=== PATIENT | male | born 1970 | race Caucasian/White ===

== ENCOUNTER → 2022-06-21 | Outpatient (CLI) | payer BC ==
--- NOTE | 2022-06-22 11:15 | MR ---
"EXAMINATION TYPE: MR brain/cspine wo/w DATE OF EXAM: 06/21/2022 COMPARISON: None. HISTORY: Abnormal reflex left > right, left arm numbness TECHNIQUE: Multiplanar, multisequence images of the brain and brainstem and cervical spine are all performed wit hout and with IV contrast, utilizing 6.5 mL intravenous Gadavist . FINDINGS: Brain: Diffusion weighted images demonstrate oval 7 x 4 mm focus of increased signal on diffusion weighted i mages with diminished signal on ADC mapping involving the posterior right frontal lobe at level of co rita radiata system with evolving acute infarct. There is T2 hyperintensity at this level. Mild ventricular and sulcal prominence. Scattered foci of T2 hyperintensity is seen throughout the wh ite matter bilaterally. There are areas of subacute infarct with subcortical enhancement in the right frontal lobe axial image 21 for reference. There is area of old infarct high right frontal parietal junction in posterior frontal lobe axial images 22 through 25. T2 Star weighted images show no suspic ious intraparenchymal blood products. Midline structures demonstrate normal morphology. The craniocervical junction appears within normal limits The dural venous sinuses appear patent. Some dependent fluid in the left maxillary sinus. Haile elate for acute maxillary sinusitis. IMPRESSION: 1. Acute 7 mm lacunar infarct posterior right frontal lobe at level of gipson radiata abutting the ri ght lateral ventricle. 2. Areas of subacute on chronic infarct posterior right frontal and parietal lobe junction along the central sulcus. 3. Mild diffuse age-related cerebral atrophy and mild to moderate chronic small vessel ischemic lopez e. 4. Possible left-sided acute maxillary sinusitis, correlate clinically. C-SPINE: FINDINGS: Sagittal images of the cervical spine show the craniocervical junction to appear within nor mal limits. The cervical and upper thoracic spinal cord is normal in course, caliber, and signal. V ertebral alignment is anatomic. The vertebral body and intravertebral disk heights are normal. The bone marrow signal intensity is within normal limits. No abnormal postcontrast enhancement is seen. Axial images show C2-C3 through C4-C5 levels to appear within normal limits. Axial images at C5-C6 levels from broad-based posterior disc protrusion mildly facing anterior thecal sac and causing mild to moderate bilateral neural foraminal narrowing. Axial images at C6-C7 and C7-T1 levels appear within normal limits. IMPRESSION: Focal degenerative change C5-C6 level as detailed above. A Yellow level critical message alert has been initiated for Tonio Aiken DO via the [employer] 36 0 | Critical Results System on 06/22/2022 11:13 AM. This message alert has been sent to Tonio wynn DO via the preferences provided by the clinician for the receipt of Radiology Critical Findings. Ryan essage ID [id number]."
== END | disposition home or self-care (01) ==
LOC: RADMRIMAIN 17:59
PROVIDERS: ATTEND Psychiatry & Neurology Neurology
DX: I63.81 Other cerebral infarction due to occlusion or stenosis of small artery (principal); G31.1 Senile degeneration of brain, not elsewhere classified; I67.82 Cerebral ischemia; M47.812 Spondylosis without myelopathy or radiculopathy, cervical region
CPT/HCPCS: 70553; 72156; A9585

== ENCOUNTER 2022-06-26 12:39 | Inpatient (IN) | payer BC ==
[2022-06-26] MEDS ORDERED: SODIUM CHLORIDE 0.9% 500 ML 500 ML IV STA (13:33)
--- NOTE | 2022-06-26 13:41 | ED ---
General Adult HPI - General Chief complaint: Neuro Symptoms/Deficit Stated complaint: neuro deficit Time Seen by Provider: 06/26/22 12:42 Source: patient, RN notes reviewed, old records reviewed Mode of arrival: ambulatory Limitations: no limitations - History of Present Illness Initial comments: This a 52-year-old male who presents emergency Department with a past medical history significant for stroke. Patient states his first stroke was in January. Patient states that he has had new weakness on the left side as well as coordination problems of the left side for the last 2 months per patient states it has not changed over the 2 months been consistent. Patient states he saw Dr. Aiken and he didn't MRI as an outpatient and showed an acute stroke on the MRI plus the old strokes that he had in the past per patient states he was told to come the emergency department because he wanted further workup and get admitted. Patient states he is a smoker. Patient denies any recent fever chills or cough per patient denies any headache patient denies any lightheadedness. Patient denies any chest pain difficulty breathing. Patient denies any abdominal pain. Patient denies any nausea vomiting diarrhea. - Related Data Home Medications Medication Instructions Recorded Confirmed ALPRAZolam [Xanax] 0.25 mg PO DAILY PRN 01/18/16 01/18/16 Ascorbic Acid [Vitamin C] 500 mg PO DAILY 01/18/16 01/18/16 Aspirin EC [Ecotrin Low Dose] 81 mg PO HS 01/18/16 01/18/16 HYDROcodone/APAP 10-325MG [Axtell 1 tab PO Q8H PRN 01/18/16 01/18/16 10-325] Mometasone/Formoterol [Dulera 200 2 puff INHALATION RT-BID 01/18/16 01/18/16 Mcg-5 Mcg Inhaler] Multivitamins, Thera [Multivitamin 1 tab PO DAILY 01/18/16 01/18/16 (formulary)] Venlafaxine HCl ER [Effexor XR] 37.5 mg PO DAILY 01/18/16 01/18/16 Zolpidem [Ambien] 10 mg PO HS 01/18/16 01/18/16 Previous Rx's Medication Instructions Recorded atenoloL 100 mg PO DAILY #0 01/19/16 lisinopriL [Zestril] 10 mg PO BID #60 tab 01/19/16 rOPINIRole HCL [Requip] 0.25 mg PO HS #30 tab 01/19/16 Allergies Allergy/AdvReac Type Severity Reaction Status Date / Time peanut Allergy Anaphylaxis Verified 01/18/16 18:46 Penicillins AdvReac Nausea & Verified 06/26/22 12:50 Vomiting Review of Systems ROS Statement: Those systems with pertinent positive or pertinent negative responses have been documented in the HPI. ROS Other: All systems not noted in ROS Statement are negative. Past Medical History Past Medical History: Asthma, Coronary Artery Disease (CAD), CVA/TIA, Hyper tension History of Any Multi-Drug Resistant Organisms: None Reported Past Surgical History: Orthopedic Surgery Additional Past Surgical History / Comment(s): mitral valve repair, left rotator cuff surgery 2004 Past Anesthesia/Blood Transfusion Reactions: No Reported Reaction Past Psychological History: No Psychological Hx Reported Smoking Status: Current every day smoker Past Alcohol Use History: None Reported Past Drug Use History: Marijuana - Past Family History Father Family Medical History: Cancer, Coronary Artery Disease (CAD), Hypertension Mother Family Medical History: Cancer General Exam - General Exam Comments Initial Comments: GENERAL: Patient is well-developed and well-nourished. Patient is nontoxic and well- hydrated and is in no acute distress. ENT: Neck is soft and supple. No significant lymphadenopathy is noted. Oropharynx is clear. Moist mucous membranes. Neck has full range of motion without eliciting any pain. EYES: The sclera were anicteric and conjunctiva were pink and moist. Extraocular movements were intact and pupils were equal round and reactive to light. Eyelids were unremarkable. PULMONARY: Unlabored respirations. Good breath sounds bilaterally. No audible rales rhonchi or wheezing was noted. CARDIOVASCULAR: There is a regular rate and rhythm without any murmurs gallops or rubs. ABDOMEN: Soft and nontender with normal bowel sounds. SKIN: Skin is clear with no lesions or rashes and otherwise unremarkable. NEUROLOGIC: Patient is alert and oriented x3. Cranial nerves II through XII are grossly intact. Patient has weakness in the left flat drier as well as and dorsi and plantar flexion. Patient also has poor cerebellar function. Finger to nose was significantly worse on the left than the right. MUSCULOSKELETAL: Normal extremities with adequate strength and full range of motion. LYMPHATICS: No significant lymphadenopathy is noted PSYCHIATRIC: Normal psychiatric evaluation. Limitations: no limitations Course Vital Signs 06/26/22 12:48 Temperature 97.5 F L Pulse Rate 69 Respiratory 18 Rate Blood Pressure 148/92 O2 Sat by Pulse 100 Oximetry Medical Decision Making - Medical Decision Making I interpret EKG. EKG shows sinus bradycardia 52 bpm [place] interval is on a 53 QRS is 93 QT interval 396 QTC is 376. Patient's EKG shows no ST segment elevation or depression. I reviewed the MRI results and that showed acute infarct. I interpreted the chest x-ray. Shows no acute abnormality. CT angiogram of the head and neck shows 90-99% stenosis of the right internal carotid. I will consult vascular. I spoke with Dr. barnett agreed to admit the patient admitted the patient wrote admitting orders I consult the neurology - Lab Data Result diagrams: 06/26/22 14:15 06/26/22 14:15 Lab Results 06/26/22 06/26/22 06/26/22 Range/Units 14:15 14:15 14:15 WBC 7.5 (3.8-10.6) k/uL RBC 4.93 (4.30-5.90) m/uL Hgb 14.3 (13.0-17.5) gm/dL Hct 44.1 (39.0-53.0) % MCV 89.5 (80.0-100.0) fL MCH 29.0 (25.0-35.0) pg MCHC 32.4 (31.0-37.0) g/dL RDW 13.5 (11.5-15.5) % Plt Count 152 (150-450) k/uL MPV 10.2 Neutrophils % 48 % Lymphocytes % 38 % Monocytes % 5 % Eosinophils % 6 % Basophils % 1 % Neutrophils # 3.6 (1.3-7.7) k/uL Lymphocytes # 2.9 (1.0-4.8) k/uL Monocytes # 0.4 (0-1.0) k/uL Eosinophils # 0.4 (0-0.7) k/uL Basophils # 0.1 (0-0.2) k/uL PT 10.7 (9.0-12.0) sec INR 1.0 (<1.2) APTT 23.8 (22.0-30.0) sec Sodium 137 (137-145) mmol/L Potassium 4.9 (3.5-5.1) mmol/L Chloride 109 H (98-107) mmol/L Carbon Dioxide 24 (22-30) mmol/L Anion Gap 4 mmol/L BUN 15 (9-20) mg/dL Creatinine 0.90 (0.66-1.25) mg/dL Est GFR (CKD-EPI)AfAm >90 (>60 ml/min/1.73 sqM) Est GFR (CKD-EPI)NonAf >90 (>60 ml/min/1.73 sqM) Glucose 94 (74-99) mg/dL Calcium 9.1 (8.4-10.2) mg/dL Total Bilirubin 0.2 (0.2-1.3) mg/dL AST 36 (17-59) U/L ALT 26 (4-49) U/L Alkaline Phosphatase 58 (38-126) U/L Troponin I (0.000-0.034) ng/mL Total Protein 6.9 (6.3-8.2) g/dL Albumin 4.4 (3.5-5.0) g/dL 06/26/22 Range/Units 14:15 WBC (3.8-10.6) k/uL RBC (4.30-5.90) m/uL Hgb (13.0-17.5) gm/dL Hct (39.0-53.0) % MCV (80.0-100.0) fL MCH (25.0-35.0) pg MCHC (31.0-37.0) g/dL RDW (11.5-15.5) % Plt Count (150-450) k/uL MPV Neutrophils % % Lymphocytes % % Monocytes % % Eosinophils % % Basophils % % Neutrophils # (1.3-7.7) k/uL Lymphocytes # (1.0-4.8) k/uL Monocytes # (0-1.0) k/uL Eosinophils # (0-0.7) k/uL Basophils # (0-0.2) k/uL PT (9.0-12.0) sec INR (<1.2) APTT (22.0-30.0) sec Sodium (137-145) mmol/L Potassium (3.5-5.1) mmol/L Chloride (98-107) mmol/L Carbon Dioxide (22-30) mmol/L Anion Gap mmol/L BUN (9-20) mg/dL Creatinine (0.66-1.25) mg/dL Est GFR (CKD-EPI)AfAm (>60 ml/min/1.73 sqM) Est GFR (CKD-EPI)NonAf (>60 ml/min/1.73 sqM) Glucose (74-99) mg/dL Calcium (8.4-10.2) mg/dL Total Bilirubin (0.2-1.3) mg/dL AST (17-59) U/L ALT (4-49) U/L Alkaline Phosphatase (38-126) U/L Troponin I <0.012 (0.000-0.034) ng/mL Total Protein (6.3-8.2) g/dL Albumin (3.5-5.0) g/dL Disposition Clinical Impression: Cerebrovascular accident (CVA) Disposition: ADMITTED IP TO THIS [facility] Time of Disposition: 14:39
[2022-06-26 14:25] LABS: Basophils # (A) 0.1 k/uL (0-0.2); Basophils % (A) 1 %; Eosinophils # (A) 0.4 k/uL (0-0.7); Eosinophils % (A) 6 %; HCT 44.1 % (39.0-53.0); HGB 14.3 gm/dL (13.0-17.5); Lymphocytes # (A) 2.9 k/uL (1.0-4.8); Lymphocytes % (A) 38 %; MCHC 32.4 g/dL (31.0-37.0); MCV 89.5 fL (80.0-100.0); Mean Platelet Volume 10.2; Monocytes # (A) 0.4 k/uL (0-1.0); Monocytes % (A) 5 %; Neutrophils # (A) 3.6 k/uL (1.3-7.7); Neutrophils % (A) 48 %; Platelet Count 152 k/uL (150-450); RBC 4.93 m/uL (4.30-5.90); RDW 13.5 % (11.5-15.5); WBC 7.5 k/uL (3.8-10.6)
[2022-06-26 14:32] LABS: ALT 26 U/L (4-49); AST 36 U/L (17-59); African American GFR (CKD) >90 (>60 ml/min/1.73 sqM); Albumin 4.4 g/dL (3.5-5.0); Alkaline Phosphatase 58 U/L (38-126); Anion Gap 4 mmol/L; Blood Urea Nitrogen 15 mg/dL (9-20); Calcium 9.1 mg/dL (8.4-10.2); Carbon Dioxide 24 mmol/L (22-30); Chloride 109 mmol/L (98-107); Glucose 94 mg/dL (74-99); Non-African American GFR(CKD) >90 (>60 ml/min/1.73 sqM); Potassium 4.9 mmol/L (3.5-5.1); Sodium 137 mmol/L (137-145); Total Bilirubin 0.2 mg/dL (0.2-1.3); Total Protein 6.9 g/dL (6.3-8.2)
[2022-06-26 14:33] LABS: Partial Thromboplastin Time 23.8 sec (22.0-30.0); Prothrombin Time 10.7 sec (9.0-12.0)
[2022-06-26] MEDS ORDERED: ASPIRIN 325 MG TAB PO STA (14:39)
--- NOTE | 2022-06-26 14:54 | XR ---
EXAMINATION TYPE: XR chest 2V DATE OF EXAM: 06/26/2022 2:42 PM COMPARISON: Chest radiographs from 01/18/2016 TECHNIQUE: XR chest 2V Frontal and lateral views of the chest. CLINICAL INDICATION:Male, 52 years old with history of altered mental status; FINDINGS: Lungs/Pleura: There is no evidence of pleural effusion, focal consolidation, or pneumothorax. Pulmonary vascularity: Unremarkable. Heart/mediastinum: Cardiomediastinal silhouette is unremarkable. Musculoskeletal: No acute osseous pathology. IMPRESSION: No acute cardiopulmonary disease/process.
--- NOTE | 2022-06-26 15:17 | CT ---
EXAMINATION TYPE: CT angio head neck DATE OF EXAM: 06/26/2022 HISTORY: cva COMPARISON: MRI brain [address] DLP: 404.8 mGycm. Automated Exposure Control for Dose Reduction was Utilized. TECHNIQUE: CTA scan of the head and neck is performed with IV Contrast, patient injected with 65cc m L of Isovue 370, axial images are obtained, coronal and sagittal reformatted images are reviewed. 3D reconstructed images are created on an independent workstation and reviewed. FINDINGS: Carotid/Vascular Structures: Normal three-vessel origin without significant stenosis from the aortic arch. Right common carotid artery shows normal origin from the right brachiocephalic artery. No signi ficant plaque or stenosis in the right common carotid artery. There is more severe mixed plaque in ri ght carotid bulb extending into proximal internal carotid artery causing near complete occlusion with poor visualized flow axial image 147 series 402. Finding correlates with image 154 series 410. Left common carotid artery shows no significant plaque or stenosis. Moderate mixed plaque left carotid bul b extends into proximal internal carotid artery without significant stenosis. Patent external carotid arteries bilaterally without significant stenosis. Codominant vertebral arteries patent to the basilar junction. Hypoplastic right posterior indicating artery. Patent left posterior communicating artery. No significant focal stenosis or aneurysm in the posterior circulation. Images of the anterior circulation show patent anterior communicating artery. No significant focal stenosis or aneurysm is seen. Other: Emphysematous change of the visualized lungs greatest in the periphery is noted. There is a sp iculated 10 x 8 mm posterior right upper lung nodule axial image 32 series 401. IMPRESSION: Significant focal stenosis origin of the proximal right internal carotid artery estimated 90-99% is confirmed. No significant stenosis or aneurysm at the level of the [place] of [place]. NASCET criteria was used in interpretation of this exam? ER physician called with findings at time of dictation.
--- NOTE | 2022-06-26 15:24 | P.HPIM ---
History of Present Illness This is a pleasant 52 years old male who presents with stroke-like symptoms. He has multiple medical problems as below Patient follow-up with her neurologist Dr. albright. We did MRI of the brain for him recently shown acute stroke but patient has no new symptoms. 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 Patient states that since January is been having numbness in his left face upper extremity and lower extremity, also have some weakness and difficulty in dropping things and his left fist associated with left blurry vision, he says that he went to [facility] and he had CT of the brain and he was told he did not have stroke. He follow-up with his neurologist Dr. Albright, so home on 05/30 ordered MRI of the brain. Dr. Albright call him and he has acute stroke per MRI report and referred him to come to emergency room. Patient denies worsening weakness or numbness but he has ongoing symptoms for the last 5 months. No significant headache or dizziness. No new double vision or slurred speech. He has no chest pain or dyspnea or abdominal pain. No nausea vomiting or diarrhea. No urinary complaints. He smokes half pack per day and was counseled to quit he does not want nicotine patch but he agrees to quit. No alcohol and he uses THC. He states he uses aspirin 81 mg at home. His PCP is Dr. Del Cid but he wants to switch his PCP Vitals stable, patient is afebrile. Has unremarkable. CBC INR, BMP and liver enzymes and troponin. Chest x-ray: No acute process. EKG showing sinus bradycardia at [address]-T changes. QTC 376. And emergency room he got aspirin Review of Systems Review of systems CONSTITUTIONAL: No fever, no malaise, no fatigue. HEENT: No recent visual problems or hearing problems. Denied any sore throat. CARDIOVASCULAR: No orthopnea, PND, no palpitations, no syncope. PULMONARY: No shortness of breath, no cough, no hemoptysis. GASTROINTESTINAL: No diarrhea, no nausea, no vomiting, no abdominal pain. Normoactive bowel sounds. NEUROLOGICAL: No headaches, no dizziness HEMATOLOGICAL: Denies any bleeding or petechiae. GENITOURINARY: Denies any burning micturition, frequency, or urgency. MUSCULOSKELETAL/RHEUMATOLOGICAL: Denies any joint pain, swelling, or any muscle pain. ENDOCRINE: Denies any polyuria or polydipsia. Past Medical History Past Medical History: Asthma, Coronary Artery Disease (CAD), CVA/TIA, Hypertension History of Any Multi-Drug Resistant Organisms: None Reported Past Surgical History: Orthopedic Surgery Additional Past Surgical History / Comment(s): mitral valve repair, left rotator cuff surgery 2004 Past Anesthesia/Blood Transfusion Reactions: No Reported Reaction Past Psychological History: No Psychological Hx Reported Smoking Status: Current every day smoker Past Alcohol Use History: None Reported Past Drug Use History: Marijuana - Past Family History Father Family Medical History: Cancer, Coronary Artery Disease (CAD), Hypertension Mother Family Medical History: Cancer Medications and Allergies Home Medications Medication Instructions Recorded Confirmed Type ALPRAZolam [Xanax] 0.25 mg PO DAILY PRN 01/18/16 01/18/16 History Ascorbic Acid [Vitamin C] 500 mg PO DAILY 01/18/16 01/18/16 History Aspirin EC [Ecotrin Low Dose] 81 mg PO HS 01/18/16 01/18/16 History HYDROcodone/APAP 10-325MG [Schaller 1 tab PO Q8H PRN 01/18/16 01/18/16 History 10-325] Mometasone/Formoterol [Dulera 200 2 puff INHALATION RT-BID 01/18/16 01/18/16 History Mcg-5 Mcg Inhaler] Multivitamins, Thera [Multivitamin 1 tab PO DAILY 01/18/16 01/18/16 History (formulary)] Venlafaxine HCl ER [Effexor XR] 37.5 mg PO DAILY 01/18/16 01/18/16 History Zolpidem [Ambien] 10 mg PO HS 01/18/16 01/18/16 History atenoloL 100 mg PO DAILY #0 01/19/16 01/18/16 Rx lisinopriL [Zestril] 10 mg PO BID #60 tab 01/19/16 Rx rOPINIRole HCL [Requip] 0.25 mg PO HS #30 tab 01/19/16 Rx Allergies Allergy/AdvReac Type Severity Reaction Status Date / Time peanut Allergy Anaphylaxis Verified 01/18/16 18:46 Penicillins AdvReac Nausea & Verified 06/26/22 12:50 Vomiting Physical Exam Vitals: Vital Signs Temp Pulse Resp BP Pulse Ox 06/26/22 12:48 97.5 F L 69 18 148/92 100 Intake and Output 06/25/22 06/26/22 06/26/22 22:59 06:59 14:59 Other: Weight 63.503 kg GENERAL: The patient is alert and oriented x3, not in any acute distress. Well developed, well nourished. HEENT: Pupils are round and equally reacting to light. EOMI. No scleral icterus. No conjunctival pallor. Normocephalic, atraumatic. No pharyngeal erythema. No thyromegaly. CARDIOVASCULAR: S1 and S2 present. No murmurs, rubs, or gallops. PULMONARY: Chest is clear to auscultation, no wheezing or crackles. ABDOMEN: Soft, nontender, nondistended, normoactive bowel sounds. No palpable organomegaly. MUSCULOSKELETAL: No joint swelling or deformity. EXTREMITIES: No cyanosis, clubbing, or pedal edema. -NEUROLOGICAL: Cranial nerves are grossly intact. 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 Meningeal signs are absent Gross neurological examination did not reveal any focal deficits. SKIN: No rashes. no petechiae. Results CBC & Chem 7: 06/26/22 14:15 06/26/22 14:15 Labs: Abnormal Lab Results - Last 24 Hours (Table) 06/26/22 Range/Units 14:15 Chloride 109 H (98-107) mmol/L Assessment and Plan Assessment: Acute stroke, With ongoing numbness in the left face and left side with mild degree of weakness especially in the left upper extremity Nicotine dependence History of previous stroke/TIA since last shown Hypertension History of asthma, not an active issue History of coronary artery disease Status post mitral valve repair Nicotine dependence Plan: Continue with aspirin 325 mg daily check carotid duplex Neurology consult Labs and medication were reviewed.. Continue same treatment. Continue with symptomatic treatment. Resume home medication. Monitor labs and vitals. DVT and GI prophylaxis. Further recommendations as per clinical course of the patient DVT prophylaxis: Subcutaneous heparin GI Prophylaxis: Pepcid PT/OT: Pending Speech therapy Prognosis is guarded
--- NOTE | 2022-06-26 16:55 | US ---
EXAMINATION TYPE: US carotid duplex BILAT DATE OF EXAM: 06/26/2022 COMPARISON: NONE CLINICAL HISTORY: stroke. Dizziness, left sided numbness, CVA TECHNIQUE: Carotid duplex ultrasound examination. Indirect Doppler criteria was utilized. 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 Increased velocities right ICA and ECA. Mild plaque left bifurcation. mildly increased velocites left ECA IMPRESSION: 1. Greater than 70% stenosis of the right carotid bifurcation with significantly elevated peak systo lic velocity and ratio. 2. Less than 50% stenosis of the left carotid bifurcation. Criteria for Assigning % of Stenosis / Diameter reduction (Estimation based on the indirect measurements of the internal carotid artery velocities (ICA PSV). 1. Normal (no stenosis)=ICA PSV < 125 cm/s: ratio < 2.0: ICA EDV<40 cm/s. 2. Less than 50% stenosis=ICA PSV < 125 cm/s: ratio < 2.0: ICA EDV<40 cm/s. 3. 50 to 69% stenosis=ICA PSV of 125 to 230 cm/s: ration 2.0 ? 4.0: ICA EDV 40-100 cm/s. 4. Greater than 70% stenosis to near occlusion= ICA PSV > 230 cm/s: ratio > 4.0: ICA EDV > 100 cm/s. 5. Near occlusion= ICA PSV velocities may be low or undetectable: variable ratio and ICA EDV. 6. Total occlusion=unable to detect flow.
[2022-06-26] MEDS: CLOPIDOGREL 75 MG TAB PO SCH (17:53)
[2022-06-26] MEDS ORDERED: ONDANSETRON ODT 4 MG TAB PO PRN (19:25)
[2022-06-26] MEDS ORDERED: NON FORMULARY DRUG (Epinephrine [Primatene Mist] 11.7 GM Each) INHALATION PRN (19:25)
[2022-06-26] MEDS ORDERED: hydrALAZINE HCL 10 MG TAB PO STA (19:31)
[2022-06-26] MEDS: NICOTINE 7MG/24HR PATCH TRANSDERM SCH (19:52)
--- NOTE | 2022-06-26 20:18 | P.CNNES ---
History of Present Illness Consult date: 06/26/22 Requesting physician: Robles Fry Reason for Consult: CVA History of Present Illness: Patient is a 52-year-old right-handed male with history of hypertension, tobacco use came to the hospital today at 12:39 PM, directly referred from his neurologist Dr. Aiken's office for abnormal brain MRI in acute on chronic CVA. Patient states that on 01/30/2022 he woke up in the morning with left facial numbness, left arm numbness and left knee numbness. He went to [facility]. Patient tells me that he was given an injection of Toradol and some anti-inflammatory medication, and was sent home. Patient says that for a month he felt feeling in the left arm, did not want to use the left arm. By mid February he was able to use his left arm, and when using it, felt significant incoordination and would shake by using the left hand or reaching for some object. He saw his family physician, who initiated consultation with a neurologist. Patient states that it took 2 months for him to see Dr. Aiken. An MRI of the brain was initiated, which was performed on 06/21/2022, revealed an acute or chronic stroke in the right hemispheric region as mentioned below. Patient was seen for a follow-up at his neurologist office today and was recommended to go straight to ER. Patient states that since all these months, he never had any visual disturbance, slurred speech or droopiness of the face or any headache. Patient states that his main symptoms involved left upper extremity, but recently his left knee also shakes, and feels incoordinated. Since February, he feels that there is an Magdiel wrap around his left upper arm in the region of biceps and triceps. Also noticed as if there is a Band-Aid over the left index finger. He denies any pain. Vital signs shows blood pressure 148/92, pulse rate 69, temperature 97.5. Blood pressure was normal CBC, PT/PTT, normal CMP. Troponin is negative. EKG shows sinus bradycardia. Chest x-ray showed no acute cardiopulmonary process. CTA of the neck showed significant focal stenosis or region of the proximal right ICA estimated 90-99% is conformed. No significant stenosis or aneurysm at the level of [place]. I personally reviewed CTA of head and neck, agree with the findings. Patient had an outpatient MRI of the brain performed on 06/21/2022, which revealed acute 7 mm lacunar infarct posterior right frontal lobe at the level of coronary radiata abutting the right lateral ventricle. Areas of subacute on chronic infarct posterior right frontal and frontal lobe junction along the central sulcus. Mild diffuse age-related cerebral atrophy and [id number] chronic small vessel ischemic change. Possible left-sided acute maxillary sinusitis, correlate clinically. I personally reviewed MRI, agree with the findings. MRI of the cervical spine revealed focal degenerative changes C5 6 from broad based posterior disc protrusion mildly effacing anterior thecal sac causing mild to moderate bilateral neural foraminal narrowing. Patient takes aspirin 81 mg daily, Xanax 0.5 mg daily when necessary, Effexor 75 mg, Zofran, metoprolol 100 mg twice a day, Suboxone. Patient has been on aspirin 81 mg daily for 25-30 years. Patient has smoked 3 packs per day since age 15, cutback to half pack per day in the last 6-8 months. He also uses angelina vinay at the knees, denies any alcohol use. Review of Systems Constitutional: Denies chills, Denies fever Eyes: denies blurred vision, denies pain Ears, nose, mouth and throat: Denies headache, Denies sore throat Cardiovascular: Denies chest pain, Denies shortness of breath Respiratory: Denies cough Gastrointestinal: Denies abdominal pain, Denies diarrhea, Denies nausea, Denies vomiting Musculoskeletal: Denies myalgias Integumentary: Denies pruritus, Denies rash Neurological: Reports as per HPI Psychiatric: Denies anxiety, Denies depression Endocrine: Denies fatigue, Denies weight change Hematologic/Lymphatic: Denies easy bleeding, Denies easy bruising Allergic/Immunologic: Denies persistent infections Past Medical History Past Medical History: Asthma, Coronary Artery Disease (CAD), CVA/TIA, Hypertension History of Any Multi-Drug Resistant Organisms: None Reported Past Surgical History: Orthopedic Surgery Additional Past Surgical History / Comment(s): mitral valve repair, left rotator cuff surgery 2004 Past Anesthesia/Blood Transfusion Reactions: No Reported Reaction Past Psychological History: No Psychological Hx Reported Smoking Status: Current every day smoker Past Alcohol Use History: None Reported Past Drug Use History: Marijuana - Past Family History Father Family Medical History: Cancer, Coronary Artery Disease (CAD), Hypertension Mother Family Medical History: Cancer Medications and Allergies Home Medications Medication Instructions Recorded Confirmed Type Aspirin EC [Ecotrin Low Dose] 81 mg PO DAILY 01/18/16 06/26/22 History ALPRAZolam [Xanax] 0.5 mg PO DAILY PRN 06/26/22 06/26/22 History Buprenorphine HCl/Naloxone HCl 1 film SL DAILY PRN 06/26/22 06/26/22 History [Buprenorphine-Nalox 8-2Mg Film] EPINEPHrine [Primatene Mist] 1 puff INHALATION RT-BID PRN 06/26/22 06/26/22 History Ibuprofen [Motrin] 800 mg PO Q8H PRN 06/26/22 06/26/22 History Metoprolol Tartrate [Lopressor] 100 mg PO BID 06/26/22 06/26/22 History Ondansetron Odt [Zofran Odt] 4 mg PO TID PRN 06/26/22 06/26/22 History Venlafaxine HCl ER [Effexor Xr] 75 mg PO DAILY 06/26/22 06/26/22 History Allergies Allergy/AdvReac Type Severity Reaction Status Date / Time peanut Allergy Anaphylaxis Verified 06/26/22 15:42 tree nut Allergy Anaphylaxis Verified 06/26/22 15:42 Penicillins AdvReac Nausea & Verified 06/26/22 15:42 Vomiting Physical Examination - Vital Signs Vital Signs: Vital Signs Temp Pulse Resp BP Pulse Ox 06/26/22 12:48 97.5 F L 69 18 148/92 100 Intake and Output 06/26/22 06/26/22 06/26/22 06:59 14:59 22:59 Other: Weight 63.503 kg Patient is a middle aged male, very pleasant, in no acute distress. Patient is alert awake oriented to time place and person. Speech and language functions are normal. Patient can name and repeat very well. No aphasia or dy sarthria. Attention, concentration and fund of knowledge is adequate. On cranial nerve examination, pupils are equal, round and reacting to light, visual blanco are full on confrontation, with no neglect on double simultaneous stimulation. Extraocular muscles are intact with no nystagmus. Face is symmetric, tongue protrudes to the midline. Palatal elevation and sensation normal, hearing and shoulder shrug normal, facial sensation normal. On muscle strength testing, there is left-sided pronation with outward drift. 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 Deep tendon reflexes are (right/left) biceps 2/3+, brachioradialis 2/3+, knees 3/3, ankles 2/3 and plantar is downgoing on the right, up on the left. Sensory to touch is equal with no neglect on double simultaneous stimulation. Cerebellar function showed significant ataxia for [id number] testing only in the left side. No ataxia for zjsf-ti-bzac testing on either side. Tone is significantly increased in the left arm and bulk of muscles normal. Gait deferred.. On general examination, there is no carotid bruit or murmur, S1-S2 audible. Chest is clear on consultation. Abdomen is soft nontender. No organomegaly, bowel sounds present. Peripheral pulses are present. No edema. Results - Laboratory Findings CBC and BMP: 06/26/22 14:15 06/26/22 14:15 Abnormal Lab Findings: Abnormal Labs 06/26/22 14:15 Chloride 109 H Assessment and Plan Assessment: * Acute, subacute and chronic areas of ischemic infarction involving the right MCA distribution, likely due to symptomatic right ICA stenosis. * Right ICA stenosis, 90-99% per CTA. * Spasticity left upper extremity due to above. * Hypertension * Tobacco use Plan: * MRI of the brain without contrast from 06/21/2022 reviewed. No indication to repeat. * 2-D echo with bubble study to rule out PFO * CTA head and neck showed: Severe stenosis, 90-99% right proximal ICA * Carotid Doppler revealed greater than 70% stenosis of the right ICA with significant elevated peak systolic velocity. Less than 50% stenosis of the left ICA. * Await vascular surgery evaluation. * Fasting a.m. lipid panel * Hemoglobin A1c * Permissive hypertension for next 24-48 hours * Patient was taking aspirin 81 mg daily at home. We will start DAP and add Plavix 75 mg as well. * Close neuro checks as per protocol. * Telemetry monitoring rule out any arrhythmia * DVT prophylaxis: Heparin 5000 units subcu every 8 hours * Recommend complete tobacco cessation. * Dr. Dave Salazar will continue to follow from morning . Thank you for the consult.
[2022-06-26] MEDS: HEPARIN SODIUM,PORCINE/PF 5,000 UNIT/0.5 ML SYRINGE SQ SCH (21:15)
[2022-06-27] MEDS: ASPIRIN 81 MG PO SCH (08:10)
[2022-06-27] MEDS: NICOTINE 7MG/24HR PATCH TRANSDERM SCH (08:10)
[2022-06-27] MEDS: HEPARIN SODIUM,PORCINE/PF 5,000 UNIT/0.5 ML SYRINGE SQ SCH ×2 (08:10→19:35)
[2022-06-27] MEDS: CLOPIDOGREL 75 MG TAB PO SCH (08:10)
[2022-06-27] MEDS: VENLAFAXINE HCL ER 75 MG CAP PO SCH (08:11)
[2022-06-27] MEDS ORDERED: ASPIRIN 325 MG TAB PO SCH (09:00)
[2022-06-27 10:52] LABS: Chol/HDL Ratio 6.69 Ratio
--- NOTE | 2022-06-27 12:02 | P.GSCN ---
History of Present Illness Consult date: 06/27/22 Reason for Consult: Carotid stenosis Requesting physician: Robles Fry History of present illness: This is a pleasant 52-year-old male who presented to the emergency department directed by his neurologist. Apparently patient was seen at [facility] back in January of this year with complaints of left facial weakness, numbness and left-sided weakness. He states at that time he didn't really do a stroke workup and he was sent home. He followed up with his primary care physician who sent him to neurologist, he recently just saw Dr. Aiken for the first time. He ordered a MRI of the brain on 06/21/2022 that revealed Patient had an outpatient MRI of the brain performed on 06/21/2022, which revealed acute 7 mm lacunar infarct posterior right frontal lobe at the level of coronary radiata abutting the right lateral ventricle. Areas of subacute on chronic infarct posterior right frontal and frontal lobe junction along the central sulcus. Mild diffuse age-related cerebral atrophy and [id number] chronic small vessel ischemic change. Possible left-sided acute maxillary sinusitis, correlate clinically. MRI of the cervical spine revealed focal degenerative changes C5 6 from broad based posterior disc protrusion mildly effacing anterior thecal sac causing mild to moderate bilateral neural foraminal narrowing. Equivocal yellow level was called and patient was told to come to the emergency department for further evaluation. Past medical history includes a daily smoker, coronary artery disease with previous mitral valve repair, hypertension, and previous CVA/TIA Patient states he's had some residual left-sided weakness since January. He denies any other focal deficits. He denies any chest pain, shortness of breath, abdominal pain, nausea or vomiting. He had a CT angiogram of the head and neck on admission which reported significant focal stenosis at the origin of the pro ximal right internal carotid artery estimated 90 mid 99%. No hematoma dynamically significant stenosis in the left ICA. Patient also had a carotid duplex that reported greater than 70% stenosis of the right ICA, less than 50% stenosis of the left ICA. Review of Systems A 14 point review systems was completed all pertinent positives and negatives as stated in the HPI. Past Medical History Past Medical History: Asthma, Coronary Artery Disease (CAD), CVA/TIA, Hypertension History of Any Multi-Drug Resistant Organisms: None Reported Past Surgical History: Orthopedic Surgery Additional Past Surgical History / Comment(s): mitral valve repair, left rotator cuff surgery 2005 Past Anesthesia/Blood Transfusion Reactions: No Reported Reaction Past Psychological History: No Psychological Hx Reported Smoking Status: Current every day smoker Past Alcohol Use History: None Reported Past Drug Use History: Marijuana - Past Family History Father Family Medical History: Cancer, Coronary Artery Disease (CAD), Hypertension Mother Family Medical History: Cancer Medications and Allergies Home Medications Medication Instructions Recorded Confirmed Type Aspirin EC [Ecotrin Low Dose] 81 mg PO DAILY 01/18/16 06/26/22 History ALPRAZolam [Xanax] 0.5 mg PO DAILY PRN 06/26/22 06/26/22 History Buprenorphine HCl/Naloxone HCl 1 film SL DAILY PRN 06/26/22 06/26/22 History [Buprenorphine-Nalox 8-2Mg Film] EPINEPHrine [Primatene Mist] 1 puff INHALATION RT-BID PRN 06/26/22 06/26/22 History Ibuprofen [Motrin] 800 mg PO Q8H PRN 06/26/22 06/26/22 History Metoprolol Tartrate [Lopressor] 100 mg PO BID 06/26/22 06/26/22 History Ondansetron Odt [Zofran Odt] 4 mg PO TID PRN 06/26/22 06/26/22 History Venlafaxine HCl ER [Effexor Xr] 75 mg PO DAILY 06/26/22 06/26/22 History Allergies Allergy/AdvReac Type Severity Reaction Status Date / Time peanut Allergy Anaphylaxis Verified 06/26/22 15:42 tree nut Allergy Anaphylaxis Verified 06/26/22 15:42 Penicillins AdvReac Nausea & Verified 06/26/22 15:42 Vomiting Surgical - Exam Vital Signs Temp Pulse Resp BP Pulse Ox 97.5 F L 69 18 148/92 100 06/26/22 12:48 06/26/22 12:48 06/26/22 12:48 06/26/22 12:48 06/26/22 12:48 General appearance: The patient is alert, oriented, appears in no acute distre ss. HET: Head is normocephalic and atraumatic. Pupils are equal and reactive. Neck: Supple without lymphadenopathy. Trachea midline. Right carotid bruit. Heart: Regular. Lungs: Equal expansion, normal respiratory effort. Abdomen: Soft, nontender, nondistended. Extremities: Normal skin color and turgor. No cyanosis, rash, ulceration, clubbing, or edema. Radial and pedal pulses are 2/4 bilaterally. Neurological: Patient is alert and oriented 3, he is able to answer questions appropriately and follow commands. He has facial symmetry, tongue protrudes midline. Patient has very mild left-sided weakness compared to right, 4/5. Results - Labs 06/26/22 14:15 06/26/22 14:15 Abnormal Lab Results - Last 24 Hours (Table) 06/26/22 06/26/22 Range/Units 14:15 14:15 Chloride 109 H (98-107) mmol/L Hemoglobin A1c 6.1 H (0.0-6.0) % Diabetes panel 06/26/22 06/26/22 Range/Units 14:15 14:15 Sodium 137 (137-145) mmol/L Potassium 4.9 (3.5-5.1) mmol/L Chloride 109 H (98-107) mmol/L Carbon Dioxide 24 (22-30) mmol/L BUN 15 (9-20) mg/dL Creatinine 0.90 (0.66-1.25) mg/dL Glucose 94 (74-99) mg/dL Hemoglobin A1c 6.1 H (0.0-6.0) % Calcium 9.1 (8.4-10.2) mg/dL AST 36 (17-59) U/L ALT 26 (4-49) U/L Alkaline Phosphatase 58 (38-126) U/L Total Protein 6.9 (6.3-8.2) g/dL Albumin 4.4 (3.5-5.0) g/dL Thyroid panel 06/27/22 Range/Units 07:38 TSH 1.560 (0.465-4.680) mIU/L Calcium panel 06/26/22 Range/Units 14:15 Calcium 9.1 (8.4-10.2) mg/dL Albumin 4.4 (3.5-5.0) g/dL Pituitary panel 06/26/22 06/27/22 Range/Units 14:15 07:38 Sodium 137 (137-145) mmol/L Potassium 4.9 (3.5-5.1) mmol/L Chloride 109 H (98-107) mmol/L Carbon Dioxide 24 (22-30) mmol/L BUN 15 (9-20) mg/dL Creatinine 0.90 (0.66-1.25) mg/dL Glucose 94 (74-99) mg/dL Calcium 9.1 (8.4-10.2) mg/dL TSH 1.560 (0.465-4.680) mIU/L Adrenal panel 06/26/22 Range/Units 14:15 Sodium 137 (137-145) mmol/L Potassium 4.9 (3.5-5.1) mmol/L Chloride 109 H (98-107) mmol/L Carbon Dioxide 24 (22-30) mmol/L BUN 15 (9-20) mg/dL Creatinine 0.90 (0.66-1.25) mg/dL Glucose 94 (74-99) mg/dL Calcium 9.1 (8.4-10.2) mg/dL Total Bilirubin 0.2 (0.2-1.3) mg/dL AST 36 (17-59) U/L ALT 26 (4-49) U/L Alkaline Phosphatase 58 (38-126) U/L Total Protein 6.9 (6.3-8.2) g/dL Albumin 4.4 (3.5-5.0) g/dL - Imaging Comments: See HPI for details Assessment and Plan Assessment: 1. Hemodynamically significant right ICA stenosis 2. Acute, subacute and chronic areas of ischemic in part involving the right MCA distribution 3. Tobacco use 4. Coronary artery disease, status post valve placement 5. Hypertension Plan: 1. Agree with aspirin and Plavix, atorvastatin added 2. Discussed with patient importance of tobacco cessation 3. Appreciate recommendations from neurology 4. Will plan to move forward with surgical intervention for right ICA stenosis. Timing based on recommendation from neurology 5. Cardiology consulted for cardiac clearance for likely carotid endarterecto my. Thank you for this consultation, we will continue to follow. The impression and plan of care has been dictated as directed. I performed a history and examination of this patient, discussed the same with the dictator. I agree with the dictator's note ,documented as a scribe. Any additional findings or plans will be noted.
--- NOTE | 2022-06-27 12:26 | CA ---
Transthoracic Echo Report Name: Osvaldo Moise Age: 52 Gender: M : 1970 Exam Date: 06/27/2022 07:48 Exam Location: [place] Ht (in): 62 Wt (lb): 140 Ordering Physician: Mihir Coulter MD Attending/Referring Phys: Bank Cashier Debbie Petit RDCS Procedure CPT: Indications: CVA Cardiac Hx: Technical Quality: Good Contrast 1: Total Dose (mL): Contrast 2: Total Dose (mL): MEASUREMENTS (Male / Female) Normal Values 2D ECHO LV Diastolic Diameter PLAX 4.0 cm 4.2 - 5.9 / 3.9 - 5.3 cm LV Systolic Diameter PLAX 2.9 cm IVS Diastolic Thickness 1.2 cm 0.6 - 1.0 / 0.6 - 0.9 cm LVPW Diastolic Thickness 1.2 cm 0.6 - 1.0 / 0.6 - 0.9 cm LV Relative Wall Thickness 0.6 RV Internal Dim ED PLAX 3.1 cm LA Systolic Diameter LX 3.5 cm 3.0 - 4.0 / 2.7 - 3.8 cm LA Volume 39.9 cm??? 18 - 58 / 22 - 52 cm??? M-MODE Aortic Root Diameter MM 2.8 cm MV E Point Septal Separation 0.3 cm AV Cusp Separation MM 2.1 cm DOPPLER AV Peak Velocity 142.2 cm/s AV Peak Gradient 8.1 mmHg AI Peak Velocity 349.8 cm/s AI Peak Gradient 48.9 mmHg AI Pressure Half Time 1362.1 ms MV Area PHT 4.0 cm??? Mitral E Point Velocity 109.6 cm/s Mitral A Point Velocity 57.8 cm/s Mitral E to A Ratio 1.9 MV Deceleration Time 187.5 ms MV E' Velocity 7.7 cm/s Mitral E to MV E' Ratio 14.2 TR Peak Velocity 230.9 cm/s TR Peak Gradient 21.3 mmHg Right Ventricular Systolic Press 25.4 mmHg FINDINGS Left Ventricle Left ventricular ejection fraction is estimated at 55-60 %. Mild LVH. Left ventricular cavity size normal. Right Ventricle Normal right ventricular size and function. Right ventricular systolic pressure within normal limits. Right Atrium Normal right atrial size. Negative agitated saline bubble study for right to left shunt. Left Atrium Normal left atrial size. No evidence for an atrial septal defect. Mitral Valve mild mitral regurgitation. No evidence for mitral valve prolapse. No mitral stenosis. Aortic Valve Trileaflet aortic valve. Focal thickening of the aortic valve cusps. No aortic valve stenosis. Mild aortic regurgitation. Tricuspid Valve Mild tricuspid regurgitation.structurally normal tricuspid valve. Pulmonic Valve Structurally normal pulmonic valve. Pericardium Normal pericardium. No pericardial effusion. Aorta Normal size aortic root and proximal ascending aorta. CONCLUSIONS 1. Normal left ventricle size and systolic function 2. Mild mitral, aortic and tricuspid regurgitation 3. No evidence of shunting across the intra-atrial septum by bubble study. Previewed by: Dr. Yarely Ann MD (Electronically Signed) Final Date: 27 June 2022 12:25
--- NOTE | 2022-06-27 13:13 | P.PN ---
Subjective This is a pleasant 52 years old male who presents with stroke-like symptoms. He has multiple medical problems as below Patient follow-up with her neurologist Dr. albright. We did MRI of the brain for him recently shown acute stroke but patient has no new symptoms. 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 Patient states that since January is been having numbness in his left face upper extremity and lower extremity, also have some weakness and difficulty in dropping things and his left fist associated with left blurry vision, he says that he went to [facility] and he had CT of the brain and he was told he did not have stroke. He follow-up with his neurologist Dr. Albright, so home on 05/30 ordered MRI of the brain. Dr. Albright call him and he has acute stroke per MRI report and referred him to come to emergency room. Patient denies worsening weakness or numbness but he has ongoing symptoms for the last 5 months. No significant headache or dizziness. No new double vision or slurred speech. He has no chest pain or dyspnea or abdominal pain. No nausea vomiting or diarrhea. No urinary complaints. He smokes half pack per day and was counseled to quit he does not want nicotine patch but he agrees to quit. No alcohol and he uses THC. He states he uses aspirin 81 mg at home. His PCP is Dr. Del Cid but he wants to switch his PCP Vitals stable, patient is afebrile. Has unremarkable. CBC INR, BMP and liver enzymes and troponin. Chest x-ray: No acute process. EKG showing sinus bradycardia at [address]-T changes. QTC 376. And emergency room he got aspirin 06/27/2022 Patient with known new complaints, still has chronic left hemiparesis. vitals reviewed, he is chronically bradycardic and as symptomatic as he states. labs reviewed. tsh is normal. increased cholesterol and patient was started on lipitor. patient continued on aspirin 81 mg which is a home dose of plavix added yesterday. vascular surgery been evaluating the patient currently Plan discussed with patient and he agrees Objective - Vital Signs Vital signs: Vital Signs Temp 97.6 F 06/27/22 03:31 Pulse 53 L 06/27/22 07:40 Resp 16 06/27/22 07:40 BP 156/82 06/27/22 07:40 Pulse Ox 98 06/27/22 09:53 FiO2 Intake & Output 06/26/22 06/27/22 06/27/22 18:59 06:59 18:59 Intake Total 0 Balance 0 Weight 63.503 kg Intake: Oral 0 Other: # Voids 1 1 - Exam GENERAL: The patient is alert and oriented x3, not in any acute distress. Well developed, well nourished. HEENT: Pupils are round and equally reacting to light. EOMI. No scleral icterus. No conjunctival pallor. Normocephalic, atraumatic. No pharyngeal erythema. No thyromegaly. CARDIOVASCULAR: S1 and S2 present. No murmurs, rubs, or gallops. PULMONARY: Chest is clear to auscultation, no wheezing or crackles. ABDOMEN: Soft, nontender, nondistended, normoactive bowel sounds. No palpable organomegaly. MUSCULOSKELETAL: No joint swelling or deformity. EXTREMITIES: No cyanosis, clubbing, or pedal edema. -NEUROLOGICAL: Cranial nerves are grossly intact. 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 Meningeal signs are absent Gross neurological examination did not reveal any focal deficits. SKIN: No rashes. no petechiae. - Labs CBC & Chem 7: 06/26/22 14:15 06/26/22 14:15 Labs: Abnormal Lab Results - Last 24 Hours (Table) 06/26/22 06/26/22 06/27/22 Range/Units 14:15 14:15 07:38 Chloride 109 H (98-107) mmol/L Hemoglobin A1c 6.1 H (0.0-6.0) % Triglycerides 384.00 H (0.00-149.00) mg/dL Cholesterol 202.00 H (0.00-200.00) mg/dL VLDL Cholesterol, Calc 76.80 H (5.00-40.00) mg/dL HDL Cholesterol 30.20 L (40.00-60.00) mg/dL Assessment and Plan Assessment: Acute stroke, With ongoing numbness in the left face and left side with mild de gree of weakness especially in the left upper extremity Nicotine dependence History of previous stroke/TIA since last shown Hypertension History of asthma, not an active issue History of coronary artery disease Status post mitral valve repair Nicotine dependence Plan: Continue with aspirin 81 mg daily and Plavix 75 mg vascular surgery consult Neurology consult Labs and medication were reviewed.. Continue same treatment. Continue with symptomatic treatment. Resume home medication. Monitor labs and vitals. DVT and GI prophylaxis. Further recommendations as per clinical course of the patient DVT prophylaxis: Subcutaneous heparin GI Prophylaxis: Pepcid PT/OT: Pending Speech therapy Prognosis is guarded
--- NOTE | 2022-06-27 15:58 | P.PN ---
Subjective Progress Note Date: 06/27/22 I'm seeing the patient for the first time during this hospital admission. In brief summary, patient has acute last subacute and chronic area of ischemic infarction in the right MCA likely due to symptomatic right ICA. Right ICA is between 90-99% per CTA. He has spasticity over left upper extremity. Patient feels his left arm weakness today is better than presentation. He feels now he can lift it up. Please refer to Dr. Coulter's note for further details. Objective - Vital Signs Vital signs: Vital Signs Temp 97.6 F 06/27/22 03:31 Pulse 58 L 06/27/22 15:01 Resp 16 06/27/22 15:01 BP 165/84 06/27/22 15:01 Pulse Ox 99 06/27/22 15:01 FiO2 Intake & Output 06/26/22 06/27/22 06/27/22 18:59 06:59 18:59 Intake Total 0 Balance 0 Weight 63.503 kg Intake: Oral 0 Other: # Voids 1 1 - Exam GENERAL: The patient is lying in bed and is not in acute distress. NEUROLOGICAL: Higher mental function: The patient is awake, alert, oriented to self, place and time. Patient is following commands. No aphasia and no neglect. Cranial nerves: The pupils are round, equal and reactive to light and accommodation. Visual blanco are full to confrontation throughout. Extraocular movement is intact no nystagmus is noted. Facial sensation is normal to touch throughout. The facial strength is normal throughout. . Tongue is midline and moved [id number] without any difficulty. No dysarthria is noted. Shoulder shrug is normal bilaterally. Motor: Gait is normal. The strength is left upper extremity is 4+ and in hand has some increase tone in left middle/ring finger but able to close hand and make fist. Otherwise 5 over 5 throughout. Normal bulk. Cerebellum: Normal finger to nose bilaterally. Sensation: Sensation is normal to touch throughout. Reflexes (right/left): 3+ over the left upper otherwise 2+ throughout. - Labs CBC & Chem 7: 06/26/22 14:15 06/26/22 14:15 Labs: Abnormal Lab Results - Last 24 Hours (Table) 06/26/22 06/27/22 Range/Units 14:15 07:38 Hemoglobin A1c 6.1 H (0.0-6.0) % Triglycerides 384.00 H (0.00-149.00) mg/dL Cholesterol 202.00 H (0.00-200.00) mg/dL VLDL Cholesterol, Calc 76.80 H (5.00-40.00) mg/dL HDL Cholesterol 30.20 L (40.00-60.00) mg/dL Assessment and Plan Assessment: * Acute, subacute and chronic areas of ischemic infarction involving the right MCA distribution, likely due to symptomatic right ICA stenosis (had recent MRI Brain as outpatient on 06/21/2022) * Right ICA stenosis, 90-99% per CTA. * Spasticity left upper extremity due to above. * Hypertension * Tobacco use Plan: WORK-UP: * Fasting a.m. lipid panel: Triglyceride of 384, cholesterol is 202, LDL is 95 and the HDL is 30. The LDL and strokes is less than 70. * Hemoglobin A1c: 6.1 * CTA head and neck showed: Severe stenosis, 90-99% right proximal ICA * Carotid Doppler revealed greater than 70% stenosis of the right ICA with significant elevated peak systolic velocity. Less than 50% stenosis of the left ICA. * 2-D echo with bubble study to rule out PFO: It is reported as normal left ventricular size and systolic function. Mild mitral aortic and tricuspid regurgitation. No evidence of shunting across the intra-atrial atrial septum by bubble study. * Patient had recent MRI of the brain without contrast from 06/21/2022 and no need for repeat. PLAN: * Patient was taking aspirin 81 mg daily at home. And during this admission was started on 75mg in addition. I have increased Lipitor from 40mg qhs to 80mg qhs for secondary stroke prophylaxis and can help stabilize plaque. * Vascular surgery team in on board for carotid stenosis. From neurological persecutive since patient has acute on chronic stroke, recommend to address the carotid stenosis during this hospital admission. * Close neuro checks as per protocol. * Telemetry monitoring rule out any arrhythmia * Vascular surgery team consulted cardiology for cardiac clearance * Recommend complete tobacco cessation. * Dr. Coulter ordered routine EEG to rule out seizure because of patient left spasticity. Preliminary report is no seizure or discharges. * For hypertriglyceridemia recommend starting fenofibrate's and we'll defer the management to primary team. * Will defer the rest of medical management to the primary team * DVT prophylaxis: Heparin 5000 units subcu every 8 hours Time with Patient: Less than 30
[2022-06-27] MEDS: ALPRAZolam 0.5 MG TAB PO PRN (19:34)
[2022-06-27] MEDS: ATORVASTATIN 80 MG TAB PO SCH (19:35)
[2022-06-27] MEDS ORDERED: ATORVASTATIN 40 MG TAB PO SCH (21:00)
--- NOTE | 2022-06-27 23:46 | EEG ---
ELECTROENCEPHALOGRAM REPORT CLINICAL HISTORY: This is a 52-year-old gentleman with left arm spasticity. The video EEG is obtained to evaluate for seizure and epileptiform discharges. RELEVANT MEDICATION: The patient is on Xanax. EEG TYPE: A routine 21-channel EEG is performed with video using the 10/20 electrode placement system. DESCRIPTION: Wakefulness is only obtained. During awake state, the posterior-dominant rhythm consists of [id number] voltage of 10 to 11 hertz activity that is well modulated, well sustained. There is no physiological stage 2 sleep architecture. There is no focal slowing. Interictal and ictal is none. ACTIVATION PROCEDURE: Photic stimulation did not evoke a posterior driving response. There is no abnormality during the photic stimulation. Hyperventilation is not performed. CLINICAL INTERPRETATION: This is a normal routine EEG. There is no focal slowing, epileptiform discharge, or seizure on the EEG. Clinical correlation is recommended. DARLYN / JASON: [id number] /
--- NOTE | 2022-06-28 09:31 | P.PN ---
Subjective Progress Note Date: 06/28/22 Principal diagnosis: Right internal carotid artery stenosis Patient is seen and examined today as follow-up. Vascular surgery is following for right ICA stenosis, of acute, subacute and chronic ischemic infarct of the right MCA. We were awaiting recommendations from neurology and timing of surgical intervention. Neurology is recommendation from there progress note is during this hospitalization. Patient denies any new focal deficits. States specificity of left upper extremity improving, as well as weakness. Objective - Vital Signs Vital signs: Vital Signs Temp 97.7 F 06/28/22 00:00 Pulse 50 L 06/28/22 04:00 Resp 18 06/28/22 04:00 BP 143/76 06/28/22 04:00 Pulse Ox 97 06/28/22 04:00 FiO2 Intake & Output 06/27/22 06/28/22 06/28/22 18:59 06:59 18:59 Intake Total 0 Balance 0 Intake: Oral 0 Other: Voiding Method Toilet # Voids 1 1 - Exam General appearance: The patient is alert, oriented, appears in no acute distress. HET: Head is normocephalic and atraumatic. Pupils are equal and reactive. Neck: Supple without lymphadenopathy. Trachea midline. Right carotid bruit. Heart: Regular. Lungs: Equal expansion, normal respiratory effort. Abdomen: Soft, nontender, nondistended. Extremities: Normal skin color and turgor. No cyanosis, rash, ulceration, clubbing, or edema. Radial and pedal pulses are 2/4 bilaterally. Neurological: Patient is alert and oriented 3, he is able to answer questions appropriately and follow commands. He has facial symmetry, tongue protrudes midline. Left upper extremity spasticity. - Labs CBC & Chem 7: 06/26/22 14:15 06/26/22 14:15 Labs: Abnormal Lab Results - Last 24 Hours (Table) 06/27/22 Range/Units 07:38 Triglycerides 384.00 H (0.00-149.00) mg/dL Cholesterol 202.00 H (0.00-200.00) mg/dL VLDL Cholesterol, Calc 76.80 H (5.00-40.00) mg/dL HDL Cholesterol 30.20 L (40.00-60.00) mg/dL Assessment and Plan Assessment: 1. Hemodynamically significant right ICA stenosis 2. Acute, subacute and chronic areas of ischemic in part involving the right MCA distribution 3. Tobacco use 4. Coronary artery disease, status post valve placement 5. Hypertension Plan: 1. Continue aspirin and Plavix, atorvastatin as ordered 2. Discussed with patient importance of tobacco cessation 3. Appreciate recommendations from neurology 4. Cardiology consulted for cardiac clearance for likely carotid endarterectomy.patient is cleared from cardiology to proceed with carotid endarterectomy 5. Nothing by mouth after midnight 6. Plan to proceed with right internal carotid artery endarterectomy tomorrow morning Thank you for this consultation, we will continue to follow. The impression and plan of care has been dictated as directed. I performed a history and examination of this patient, discussed the same with the dictator. I agree with the dictator's note ,documented as a scribe. Any additional findings or plans will be noted. Reviewed CTA and carotid doppler with patient and discussed options for carotid endarterectomy. All questions answered, consent signed- will schedule for tomorrow.
[2022-06-28] MEDS: VENLAFAXINE HCL ER 75 MG CAP PO SCH (10:02)
[2022-06-28] MEDS: CLOPIDOGREL 75 MG TAB PO SCH (10:02)
[2022-06-28] MEDS: NICOTINE 7MG/24HR PATCH TRANSDERM SCH (10:02)
[2022-06-28] MEDS: ASPIRIN 81 MG PO SCH (10:02)
[2022-06-28] MEDS: HEPARIN SODIUM,PORCINE/PF 5,000 UNIT/0.5 ML SYRINGE SQ SCH ×2 (10:03→20:07)
--- NOTE | 2022-06-28 11:50 | CONS ---
CONSULTATION HISTORY OF PRESENT ILLNESS: This is a 52-year-old gentleman. Unfortunately, he is a heavy smoker. He also has no significant past medical history, takes an aspirin a day. Since January onwards, he has been having episodes of transient left-sided weakness finally culminated in this hospitalization, and the CAT scan suggests a subacute stroke on the right side with left-sided weakness, which has improved substantially. He also has a tight stenosis in the right internal carotid at the origin. He is going for surgery shortly. I am seeing him for preoperative evaluation. 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 Unfortunately, he used to smoke heavily. He has cut down on the smoking. He has no symptoms to suggest angina prior to these episodes. Echo performed yesterday revealed good systolic function. There is no contraindication for surgery. The risk is moderate. I am not recommending beta-blockers at this time. His blood pressure is in the 110 to 120 range. Heart rate is also decent. He can proceed with the surgery. Advised cautious fluid administration and optimal BP control perioperatively. PHYSICAL EXAMINATION: VITAL SIGNS: Blood pressure is about 140/70. Pulse rate is 52 per minute. If the blood pressure is elevated, I would add an antihypertensive, but for now, I will not make any adjustment. We will await input from Neurology. NECK: There is no JVD. There is a right carotid bruit. HEART: Reveals S1 and S2 without rub, murmur, or gallop. LUNGS: Clear. ABDOMEN: Unremarkable. LOWER EXTREMITIES: Unremarkable. CENTRAL NERVOUS SYSTEM: Left-sided weakness noted, but apparently, there is improvement per the patient. IMPRESSION: 1. Subacute right-sided stroke with left-sided weakness with right carotid stenosis. 2. Hyperlipidemia. 3. History of smoking. RECOMMENDATIONS: Okay to proceed with surgery. Optimize BP control. Defer beta-kade since heart rate is lower. Moderate risk. No contraindication. Advised cautious fluid administration and optimal BP control perioperatively. MMODL / IJN: [id number] /
--- NOTE | 2022-06-28 16:36 | P.PN ---
Subjective Progress Note Date: 06/28/22 Patient seen at bedside and he denies any new no neurological deficits. Feels the left side is better compared to initial presentation. Objective - Vital Signs Vital signs: Vital Signs Temp 97.8 F 06/28/22 12:49 Pulse 54 L 06/28/22 12:49 Resp 16 06/28/22 12:49 BP 177/89 06/28/22 12:49 Pulse Ox 97 06/28/22 12:49 FiO2 Intake & Output 06/27/22 06/28/22 06/28/22 18:59 06:59 18:59 Intake Total 0 240 Balance 0 240 Intake: Oral 0 240 Other: Voiding Method Toilet Toilet # Voids 1 1 1 - Exam GENERAL: The patient is lying in bed and is not in acute distress. NEUROLOGICAL: Higher mental function: The patient is awake, alert, oriented to self, place and time. Patient is following commands. No aphasia and no neglect. Cranial nerves: The pupils are round, equal and reactive to light and accommodation. Visual blanco are full to confrontation throughout. Extraocular movement is intact no nystagmus is noted. Facial sensation is normal to touch throughout. The facial strength is normal throughout. . Tongue is midline and moved [id number] without any difficulty. No dysarthria is noted. Shoulder shrug is normal bilaterally. Motor: Gait is normal. The strength is left upper extremity is 4+ and in hand has some increase tone in left middle/ring finger but able to close hand and make fist. Otherwise 5 over 5 throughout. Normal bulk. Cerebellum: Normal finger to nose bilaterally. Sensation: Sensation is normal to touch throughout. Reflexes (right/left): 3+ over the left upper otherwise 2+ throughout. - Labs CBC & Chem 7: 06/26/22 14:15 06/26/22 14:15 Assessment and Plan Assessment: * Acute, subacute and chronic areas of ischemic infarction involving the right MCA distribution, likely due to symptomatic right ICA stenosis (had recent MRI Brain as outpatient on 06/21/2022) * Right ICA stenosis, 90-99% per CTA. * Spasticity left upper extremity due to above. * Hypertension * Tobacco use Plan: WORK-UP: * Fasting a.m. lipid panel: Triglyceride of 384, cholesterol is 202, LDL is 95 and the HDL is 30. The LDL and strokes is less than 70. * Hemoglobin A1c: 6.1 * CTA head and neck showed: Severe stenosis, 90-99% right proximal ICA * Carotid Doppler revealed greater than 70% stenosis of the right ICA with significant elevated peak systolic velocity. Less than 50% stenosis of the left ICA. * 2-D echo with bubble study to rule out PFO: It is reported as normal left ventricular size and systolic function. Mild mitral aortic and tricuspid regurgitation. No evidence of shunting across the intra-atrial atrial septum by bubble study. * Patient had recent MRI of the brain without contrast from 06/21/2022 and no need for repeat. * Routine EEG: It is normal. There is no focal slowing, perform discharges or seizure in the EEG. PLAN: * Patient was taking aspirin 81 mg daily at home. And during this admission was started on 75mg in addition. Continue Lipitor 80mg qhs for secondary stroke prophylaxis and can help stabilize plaque. * Vascular surgery team in on board for carotid stenosis. From neurological persecutive since patient has acute on chronic stroke, recommend to address the carotid stenosis during this hospital admission (I feel the benefit ou tweigh the risk). Patient is schedule for surgery tomorrow. * Close neuro checks as per protocol. * Telemetry monitoring rule out any arrhythmia * Vascular surgery team consulted cardiology for cardiac clearance * Recommend complete tobacco cessation. * For hypertriglyceridemia recommend starting fenofibrate's and we'll defer the management to primary team. * Will defer the rest of medical management to the primary team * DVT prophylaxis: Heparin 5000 units subcu every 8 hours Time with Patient: Less than 30
[2022-06-28] MEDS: ALPRAZolam 0.5 MG TAB PO PRN (20:07)
[2022-06-28] MEDS: ATORVASTATIN 80 MG TAB PO SCH (20:07)
--- NOTE | 2022-06-28 23:02 | P.PN ---
Subjective This is a pleasant 52 years old male who presents with stroke-like symptoms. He has multiple medical problems as below Patient follow-up with her neurologist Dr. albright. We did MRI of the brain for him recently shown acute stroke but patient has no new symptoms. 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 Patient states that since January is been having numbness in his left face upper extremity and lower extremity, also have some weakness and difficulty in dropping things and his left fist associated with left blurry vision, he says that he went to [facility] and he had CT of the brain and he was told he did not have stroke. He follow-up with his neurologist Dr. Albright, so home on 05/30 ordered MRI of the brain. Dr. Albright call him and he has acute stroke per MRI report and referred him to come to emergency room. Patient denies worsening weakness or numbness but he has ongoing symptoms for the last 5 months. No significant headache or dizziness. No new double vision or slurred speech. He has no chest pain or dyspnea or abdominal pain. No nausea vomiting or diarrhea. No urinary complaints. He smokes half pack per day and was counseled to quit he does not want nicotine patch but he agrees to quit. No alcohol and he uses THC. He states he uses aspirin 81 mg at home. His PCP is Dr. Del Cid but he wants to switch his PCP Vitals stable, patient is afebrile. Has unremarkable. CBC INR, BMP and liver enzymes and troponin. Chest x-ray: No acute process. EKG showing sinus bradycardia at [address]-T changes. QTC 376. And emergency room he got aspirin 06/27/2022 Patient with known new complaints, still has chronic left hemiparesis. vitals reviewed, he is chronically bradycardic and as symptomatic as he states. labs reviewed. tsh is normal. increased cholesterol and patient was started on lipitor. patient continued on aspirin 81 mg which is a home dose of plavix added yesterday. vascular surgery been evaluating the patient currently Plan discussed with patient and he agrees 06/28/2022 patient's with chronic left hemiparesis for the last few months, went to see his doctor who ordered MRI of the brain showed acute stroke so he was referred to the hospital CTA showing severe stenosis of the right, internal carotid artery. Vascular surgery team was consulted and patient is planned to undergo right endarterectomy tomorrow morning. Also neurologist and medical accounts receivable specialist on the case. Patient currently on home dose of aspirin 81 mg and Plavix added. Objective - Vital Signs Vital signs: Vital Signs Temp 97.8 F 06/28/22 12:49 Pulse 54 L 06/28/22 12:49 Resp 16 06/28/22 12:49 BP 177/89 06/28/22 12:49 Pulse Ox 97 06/28/22 12:49 FiO2 Intake & Output 06/27/22 06/28/22 06/28/22 18:59 06:59 18:59 Intake Total 0 Balance 0 Intake: Oral 0 Other: Voiding Method Toilet Toilet # Voids 1 1 1 - Exam GENERAL: The patient is alert and oriented x3, not in any acute distress. Well developed, well nourished. HEENT: Pupils are round and equally reacting to light. EOMI. No scleral icterus. No conjunctival pallor. Normocephalic, atraumatic. No pharyngeal erythema. No thyromegaly. CARDIOVASCULAR: S1 and S2 present. No murmurs, rubs, or gallops. PULMONARY: Chest is clear to auscultation, no wheezing or crackles. ABDOMEN: Soft, nontender, nondistended, normoactive bowel sounds. No palpable organomegaly. MUSCULOSKELETAL: No joint swelling or deformity. EXTREMITIES: No cyanosis, clubbing, or pedal edema. -NEUROLOGICAL: Cranial nerves are grossly intact. 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 Meningeal signs are absent Gross neurological examination did not reveal any focal deficits. SKIN: No rashes. no petechiae. - Labs CBC & Chem 7: 06/26/22 14:15 06/26/22 14:15 Assessment and Plan Assessment: Acute stroke, With ongoing numbness in the left face and left side with mild degree of weakness especially in the left upper extremity Nicotine dependence History of previous stroke/TIA since last shown Hypertension History of asthma, not an active issue History of coronary artery disease Status post mitral valve repair Nicotine dependence Plan: Continue with aspirin 81 mg daily and Plavix 75 mg vascular surgery consult Neurology consult Labs and medication were reviewed.. Continue same treatment. Continue with symptomatic treatment. Resume home medication. Monitor labs and vitals. DVT and GI prophylaxis. Further recommendations as per clinical course of the patient DVT prophylaxis: Subcutaneous heparin GI Prophylaxis: Pepcid PT/OT: Pending Speech therapy Prognosis is guarded
[2022-06-29] MEDS ORDERED: PROPOFOL 10 MG/ML 20 ML VIAL IV ONE (08:12)
[2022-06-29] MEDS ORDERED: ePHEDrine 50 MG/ML 1 ML VIAL ONE (08:12)
[2022-06-29] MEDS ORDERED: LIDOCAINE 2% INJ 20 MG/ML (2 ML VIAL) ONE (08:12)
[2022-06-29] MEDS ORDERED: LIDOCAINE 4% LTA KIT (4 ML) TOPICAL ONE (08:12)
[2022-06-29] MEDS ORDERED: MIDAZOLAM 2 MG/2 ML VIAL ONE (08:12)
[2022-06-29] MEDS ORDERED: SUCCINYLCHOLINE CHLORIDE 200 MG/10 ML VIAL IV ONE (08:12)
[2022-06-29] MEDS ORDERED: fentaNYL (PF) 50 MCG/ML 2 ML AMP ONE (08:12)
[2022-06-29] MEDS ORDERED: PHENYLEPHRINE-0.9% NACL SYG 1,000 MCG/10 ML SYRINGE ONE (08:12)
[2022-06-29] MEDS ORDERED: ONDANSETRON 4 MG/2 ML VIAL ONE (08:12)
[2022-06-29] MEDS ORDERED: ROCURONIUM 10 MG/ML (5 ML VIAL) IV ONE (08:12)
[2022-06-29] MEDS ORDERED: SODIUM CHLORIDE 0.9% 50 ML with ceFAZolin 2 GM IV ONE ×2 (08:14)
[2022-06-29] MEDS ORDERED: LACTATED RINGERS 1,000 ML IV ONE ×3 (08:14→11:50)
[2022-06-29] MEDS ORDERED: HEPARIN SODIUM (1,000 UNIT/ML) 2,000 UNIT in SODIUM CHLORIDE 0.9% 1,000 ML IRRIGATION ONE (08:54)
[2022-06-29] MEDS ORDERED: ceFAZolin 2 GM in SODIUM CHLORIDE 0.9% 500 ML 500 ML IRRIGATION ONE (08:55)
--- NOTE | 2022-06-29 10:49 | P.OP ---
Date of Procedure: 06/29/22 Preoperative Diagnosis: Hemodynamically severe and symptomatic right ICA stenosis. Postoperative Diagnosis: Same. Procedure(s) Performed: Right carotid endarterectomy with patch angioplasty. Anesthesia: CINTHIAA Surgeon: Tylor Rodriguez Estimated Blood Loss (ml): 25 Pathology: other (Carotid plaque.) Condition: stable Disposition: ICU Indications for Procedure: Patient is a 52-year-old male who presented with acute neurologic symptoms of the right hemisphere affecting the left megan-torso. Workup demonstrated greater than 90% right ICA stenosis. The patient's symptoms have nearly completely resolved and was felt the patient is a good candidate for carotid thromboendarterectomy. The procedure, risk and benefits were discussed with the patient. All questions were answered to patient's satisfaction. Consent form was signed. Description of Procedure: Patient was brought the upper and placed in the supine position and administered general endotracheal anesthesia administered by the department anesthesiology. Patient received 2 g of Ancef intravenously in the perioperative phase for prophylactic antibiotic therapy. The patient's right cervical, supraclavicular and anterior chest wall areas were sterilely prepped and draped in usual manner. Skin incision was made along the anterior border sternocleidomastoid muscle and carried down through the subcu change tissues. Hemostasis was achieved using electrocautery. The incision was deepened through the platysma muscle and dissection carried along the anterior border of the sternocleidomastoid muscle. The facial vein was identified dissected free of investing tissues ligated with suture and divided. The vagus nerve was noted to be slightly anterior to the common carotid artery. This was mobilized off the Common carotid. The proximal portion of the common carotid was dissected free of investing tissues and encircled Vesseloops. Dissection was then carried cephalad to the bulb level. The superior thyroid and external carotid arteries were dissected free of investing tissues and encircled Vesseloops. The dissection was then carried cephalad. The body of the digastric as well as the hypoglossal nerve were identified and the nerve was left undisturbed. The dissection was carried to a level past the plaque burden on the internal carotid and the artery was then encircled vessel loop. The patient was administered 6000 units of heparin and after adequate circulation time the internal carotid followed by the common and external carotid and superior thyroid artery loops were drawn closed. Arteriotomy was made in the common and extended with Pott Rodriguez scissors through the level of bulb into the internal carotid artery. Stump pressures were obtained. Mean pressure was 35 mmHg and a shunt was then placed in the the internal carotid backbled and then placed in the common carotid thus restoring flow into the internal system. Thromboendarterectomy plane was identified at the proximal portion of the common and the plane was extended to the level of bulb. Retraction endarterectomy was performed on the external system. The endarterectomy plane was then continued into the internal carotid. The plaque was then removed. The distal plaque was then tacked with 7-0 Prolene suture. The remaining luminal surface was inspected for any loose or free-floating material and this was removed where identified. Patch angioplasty closure of the arteriotomy was created with 6-0 Prolene suture and a bovine pericardial patch. Just prior to completion of the anastomotic line the shunt was removed. The internal carotid was backbled and the common carotid artery was flushed. The anastomotic line completed. Backbleeding through the internal carotid was accomplished and then the internal was occluded at its origin. Vessel loops surrounding the external carotid, superior thyroid and finding the common carotid were released thus flushing any potential debris into the external system. Flow was then restored to the internal system. Excellent pulse in the internal distal to the endarterectomy plane was identified. The patient then was advanced are 25 mg of protamine and topical thrombin and Gelfoam were placed about the anastomotic line. Reinspection demonstrated hemostasis to be adequate. The wound was then [place] irrigated with antibiotic containing solution. Again hemostasis remained adequate. Deep tissues were closed with 3-0 Vicryl. Dermis was closed with 4-0 Monocryl placed in running intradermal fashion. Appropriate dressings were applied. Patient tolerated the procedure well, awoke without apparent neurologic sequelae and was transferred to the recovery area satisfactory and stable condition.
[2022-06-29] MEDS ORDERED: BENZOCAINE/MENTHOL LOZENG 1 EACH LOZENGE MUCOUS MEM PRN (10:50)
[2022-06-29] MEDS ORDERED: TRIMETHOBENZAMIDE 100 MG/ML 2 ML VIAL IM PRN (10:50)
[2022-06-29] MEDS ORDERED: DEXAMETHASONE SOD PHOSPHATE 4 MG/ML 1 ML VIAL IVP ONE ×2 (10:50→10:51)
[2022-06-29] MEDS ORDERED: ACETAMINOPHEN TAB 325 MG TAB PO PRN (10:50)
[2022-06-29] MEDS ORDERED: MAG HYDROX/AL HYDROX/SIMETH 30 ML CUP PO PRN (10:50)
[2022-06-29] MEDS ORDERED: HYDROcodone/APAP 5-325MG 1 EACH TAB PO PRN (10:51)
[2022-06-29] MEDS ORDERED: HYDROmorphone 0.5 MG/0.5 ML SYRINGE IVP ONE ×2 (11:00→11:10)
[2022-06-29] MEDS: CLOPIDOGREL 75 MG TAB PO SCH (12:14)
[2022-06-29] MEDS: ALPRAZolam 0.5 MG TAB PO PRN (12:20)
[2022-06-29] MEDS: HEPARIN SODIUM,PORCINE/PF 5,000 UNIT/0.5 ML SYRINGE SQ SCH ×2 (12:59→20:02)
[2022-06-29] MEDS: NICOTINE 7MG/24HR PATCH TRANSDERM SCH (13:00)
[2022-06-29] MEDS: VENLAFAXINE HCL ER 75 MG CAP PO SCH (13:00)
--- NOTE | 2022-06-29 13:56 | P.PN ---
Subjective Progress Note Date: 06/29/22 Patient is seen today resting comfortably in bed in the ICU status post right carotid endarterectomy. He states he is doing well he denies chest pain increased shortness of breath, or syncope. Vitals remained stable and he is in sinus rhythm on the monitor. Patient is on aspirin, Lipitor, Plavix, Objective - Vital Signs Vital signs: Vital Signs Temp 98.3 F 06/29/22 12:04 Pulse 52 L 06/29/22 12:15 Resp 16 06/29/22 12:15 BP 107/68 06/29/22 12:15 Pulse Ox 96 06/29/22 12:15 FiO2 Intake & Output 06/28/22 06/29/22 06/29/22 18:59 06:59 18:59 Intake Total 240 2026 Output Total 210 Balance 240 1816 Weight 63.5 kg Intake: IV 2026 Lactated Ringers 1,000 ml 75 @ 75 mls/hr IV .[id number] Rx#:[id number] Oral 240 Output: Urine 200 Estimated Blood Loss 10 Other: Voiding Method Toilet Toilet Urinal # Voids 2 ABP, PAP, CO, CI - Last Documented Arterial Blood Pressure 114/51 - Exam PHYSICAL EXAM: VITAL SIGNS: Reviewed. GENERAL: Well-developed in no acute distress. HEENT: Head is normocephalic. Pupils are equal, round. Sclerae anicteric. Mucous membranes of the mouth are moist. NECK: Supple. No JVD or thyromegaly status post right carotid endarterectomy RESPIRATORY: Respirations even and unlabored. Lungs diminished to auscultation bilaterally. CARDIO: Regular rate and rhythm. S1 and S2 heard. No murmur or gallops. EXTREMITIES: Normal range of motion. No clubbing or cyanosis. Peripheral pulses intact. Negative for bilateral lower extremity edema NEURO: Orientated to person, time, mood is appropriate - Labs CBC & Chem 7: 06/26/22 14:15 06/26/22 14:15 Assessment and Plan Assessment: Right carotid stenosis status post endarterectomy Plan: Continue with all current cardiac medications Continue with optimal blood pressure control Will continue to monitor heart rate and hold beta kade due to mild bradycardia Further recommendations based on clinical course The above impression and plan of care have been discussed and directed by the signing physician. Fela Song, nurse practitioner, acting as scribe for signing physician.
[2022-06-29] MEDS: ASPIRIN 81 MG PO SCH (15:00)
[2022-06-29] MEDS: BUPRENORPHINE HCL SUBLINGUAL SCH ×2 (15:00→21:50)
[2022-06-29] MEDS: LACTATED RINGERS 1,000 ML IV SCH (15:00)
[2022-06-29] MEDS: NALOXONE HCL SUBLINGUAL SCH ×2 (15:00→21:50)
[2022-06-29] MEDS ORDERED: ATROPINE SULFATE 0.1 MG/ML 10ML SYRINGE ONE (18:59)
[2022-06-29] MEDS: METOPROLOL TARTRATE 50 MG TAB PO SCH (20:02)
[2022-06-29] MEDS: ATORVASTATIN 80 MG TAB PO SCH (20:02)
[2022-06-30] MEDS: LACTATED RINGERS 1,000 ML IV SCH (01:00)
[2022-06-30] MEDS: NICOTINE 7MG/24HR PATCH TRANSDERM SCH (01:17)
--- NOTE | 2022-06-30 02:34 | PN ---
PROGRESS NOTE DATE OF SERVICE: 06/29/2022 HISTORY OF PRESENT ILLNESS: This is a 52-year-old gentleman who was admitted with acute stroke, has significant carotid stenosis. The patient underwent carotid endarterectomy today on the right side by vascular. The patient is also taking Suboxone at home, patient is monitored in ICU at this time. PAST MEDICAL HISTORY: Reviewed. REVIEW OF SYSTEMS: A 14-point review is negative except as mentioned earlier. The patient underwent right carotid endarterectomy with a patch angiography. CURRENT MEDICATIONS: Reviewed include Xanax and aspirin, doses and rest of medications reviewed. PHYSICAL EXAMINATION: VITAL SIGNS: Pulse is 54, blood pressure is 147/50, respirations 15. HEENT: Conjunctivae normal. NECK: No JVD. CARDIOVASCULAR: S1, S2. RESPIRATIONS: Diminished at the bases. No rhonchi, no crackles. ABDOMEN: Soft. NERVOUS SYSTEM: Hemiplegia present, otherwise neck is status post right endarterectomy. LABS: Reviewed. Cholesterol is 202, triglycerides 384. ASSESSMENT: 1. Acute stroke on the left side with right carotid stenosis and right carotid endarterectomy with patch angioplasty. 2. History of nicotine dependence. 3. Hypertriglyceridemia. 4. Previous stroke. 5. Hypertension. 6. History of coronary artery disease. RECOMMENDATIONS: Recommended to continue current medical management and symptomatic treatment. Otherwise at this time, I recommend repeat labs. Continue with antiplatelet agents. The patient is on Lipitor 80 mg q.h.s. and guarded prognosis. Further recommendations to follow, follow closely, follow with Neurology and Vascular Surgery. MMODL / IJN: [id number] /
[2022-06-30 05:32] LABS: Basophils % (A) 0 %; Eosinophils # (A) 0.1 k/uL (0-0.7); Eosinophils % (A) 1 %; HCT 37.4 % (39.0-53.0); HGB 12.6 gm/dL (13.0-17.5); Lymphocytes # (A) 1.6 k/uL (1.0-4.8); Lymphocytes % (A) 10 %; MCH 29.3 pg (25.0-35.0); MCHC 33.7 g/dL (31.0-37.0); Mean Platelet Volume 10.9; Monocytes # (A) 0.7 k/uL (0-1.0); Monocytes % (A) 4 %; Neutrophils # (A) 13.1 k/uL (1.3-7.7); Neutrophils % (A) 84 %; Platelet Count 149 k/uL (150-450); RDW 13.8 % (11.5-15.5); WBC 15.6 k/uL (3.8-10.6)
[2022-06-30 05:46] LABS: ALT 22 U/L (4-49); AST 44 U/L (17-59); African American GFR (CKD) >90 (>60 ml/min/1.73 sqM); Albumin 3.7 g/dL (3.5-5.0); Alkaline Phosphatase 52 U/L (38-126); Anion Gap 5 mmol/L; Blood Urea Nitrogen 15 mg/dL (9-20); Carbon Dioxide 25 mmol/L (22-30); Chloride 104 mmol/L (98-107); Glucose 108 mg/dL (74-99); Non-African American GFR(CKD) >90 (>60 ml/min/1.73 sqM); Potassium 4.3 mmol/L (3.5-5.1); Sodium 134 mmol/L (137-145); Total Bilirubin 0.5 mg/dL (0.2-1.3); Total Protein 5.9 g/dL (6.3-8.2)
[2022-06-30] MEDS: CLOPIDOGREL 75 MG TAB PO SCH (08:48)
[2022-06-30] MEDS: ASPIRIN 81 MG PO SCH (08:48)
[2022-06-30] MEDS: METOPROLOL TARTRATE 50 MG TAB PO SCH (08:48)
[2022-06-30 08:51] VITALS: TEMP 98.1
[2022-06-30] MEDS ORDERED: ENOXAPARIN 40 MG/0.4 ML SYRINGE SQ SCH (09:00)
[2022-06-30 09:47] VITALS: PULSE 73; RESP 11
[2022-06-30] MEDS: VENLAFAXINE HCL ER 75 MG CAP PO SCH (09:54)
[2022-06-30] MEDS: ALPRAZolam 0.5 MG TAB PO PRN (09:54)
[2022-06-30 10:31] VITALS: BP 131/79
--- NOTE | 2022-06-30 10:35 | P.PN ---
Subjective Progress Note Date: 06/30/22 Principal diagnosis: Postop day #1 status post right carotid endarterectomy. Patient is without complaints. Indicates that his vision is improved. He is eating/swallowing without issue. He denies any neck pain. Objective - Vital Signs Vital signs: Vital Signs Temp 98.1 F 06/30/22 08:00 Pulse 73 06/30/22 09:00 Resp 11 L 06/30/22 09:00 BP 131/79 06/30/22 10:00 Pulse Ox 97 06/30/22 09:00 FiO2 Intake & Output 06/29/22 06/30/22 06/30/22 18:59 06:59 18:59 Intake Total 2927 1535 Output Total 710 1800 300 Balance 2217 -265 -300 Weight 67.1 kg Intake: IV 2477 575 Lactated Ringers 1,000 ml 525 575 @ 75 mls/hr IV .[id number] Rx#:[id number] Oral 450 960 Output: Urine 700 1800 300 Estimated Blood Loss 10 Other: Voiding Method Urinal Urinal Urinal # Voids 1 1 ABP, PAP, CO, CI - Last Documented Arterial Blood Pressure 153/62 - Exam Surgical wounds clean, dry and healing normally. Tongue is midline. Equal motor strength in the upper and lower extremities is noted. - Labs CBC & Chem 7: 06/30/22 05:15 06/30/22 05:15 Labs: Abnormal Lab Results - Last 24 Hours (Table) 06/30/22 06/30/22 Range/Units 05:15 05:15 WBC 15.6 H (3.8-10.6) k/uL Hgb 12.6 L (13.0-17.5) gm/dL Hct 37.4 L (39.0-53.0) % Plt Count 149 L (150-450) k/uL Neutrophils # 13.1 H (1.3-7.7) k/uL Sodium 134 L (137-145) mmol/L Glucose 108 H (74-99) mg/dL Total Protein 5.9 L (6.3-8.2) g/dL Assessment and Plan Assessment: Status post right carotid endarterectomy. Plan: Surgically the patient is stable for discharge. Ideally the patient should be on both aspirin and statin medication. I strongly encouraged the patient to avoid any and all tobacco products from this point forward. He is allowed to shower over his wounds starting tomorrow. I would like to see him back in the office in 2 weeks, sooner should symptoms warrant. Time with Patient: Less than 30
[2022-06-30] MEDS: NALOXONE HCL SUBLINGUAL SCH (10:42)
[2022-06-30] MEDS: BUPRENORPHINE HCL SUBLINGUAL SCH (10:42)
[2022-06-30] MEDS: HEPARIN SODIUM,PORCINE/PF 5,000 UNIT/0.5 ML SYRINGE SQ SCH (10:44)
--- NOTE | 2022-06-30 19:32 | CONS ---
CONSULTATION HISTORY OF PRESENT ILLNESS: Osvaldo is a 52-year-old gentleman who underwent carotid endarterectomy. He has done very well with surgery and is ready to be discharged home. This morning he is free of symptoms. PHYSICAL EXAMINATION: GENERAL: Comfortable at rest. VITAL SIGNS: Stable. CHEST: Reveals good air entry bilaterally. HEART: Reveals first and second heart sounds, no gallop. EXTREMITIES: Did not reveal any edema. Peripheral pulses are felt. MEDICATIONS: The patient will be discharged home on, 1. Aspirin. 2. Lipitor 80 mg daily. 3. Plavix 75 mg daily. 4. Lopressor, the patient was on 100 b.i.d. but has not gotten his doses because of bradycardia. Will decrease it to 50 b.i.d. on discharge. ASSESSMENT AND PLAN: 1. Cerebrovascular accident. 2. Hypertension. 3. Dyslipidemia. 4. The patient is status post right carotid endarterectomy, doing well, ambulating and stable for discharge. 5. Followup with Cardiology. MMMIKAL / CTN: [id number] /
--- NOTE | 2022-06-30 22:44 | DS ---
DISCHARGE SUMMARY FINAL DIAGNOSES: 1. Acute stroke involving the left side caused by right-sided stroke and status post right carotid stenosis and right carotid endarterectomy with patch angioplasty. 2. History of nicotine dependence. 3. Hypertriglyceridemia. 4. History of previous stroke. 5. Hypertension. 6. Multiple medical issues. DISCHARGE DISPOSITION: The patient will be discharged in stable condition with guarded prognosis. Discharge cleared by Vascular Surgery. HISTORY OF PRESENT ILLNESS: This is a 52-year-old gentleman admitted with stroke, found to have carotid stenosis. The patient underwent right carotid endarterectomy. The patient was monitored in ICU. The patient improved significantly. The patient was able to walk. The patient will be discharged in stable condition with guarded prognosis. PHYSICAL EXAMINATION: VITAL SIGNS: Stable. CARDIOVASCULAR: S1, S2 normal. ABDOMEN: Soft. NERVOUS SYSTEM: No focal deficits. DISCHARGE MEDICATIONS: Resume the home medications and add Lipitor 80 mg at bedtime and Plavix 75 mg p.o. daily. Follow with Vascular Surgery. Follow with Dr. Alvarado and follow up with Neurology as an outpatient. MMODL / IJN: [id number] /
== END 2022-06-30 12:58 | disposition home or self-care (01) | DRG 38 ==
LOC: EC 12:39 → 3SCARD 14:39 → 2SICU 06-29 10:11
PROVIDERS: ADMIT Internal Medicine; ATTEND Internal Medicine
PROC: 4A10X4Z Monitoring of Central Nervous Electrical Activity, External Approach (ICD-10-PCS; 2022-06-27)
PROC: B246ZZ4 Ultrasonography of Right and Left Heart, Transesophageal (ICD-10-PCS; 2022-06-27)
PROC: 03UK0JZ Supplement Right Internal Carotid Artery with Synthetic Substitute, Open Approach (ICD-10-PCS; 2022-06-29)
PROC: 03CK0ZZ Extirpation of Matter from Right Internal Carotid Artery, Open Approach (ICD-10-PCS; principal; 2022-06-29 08:00)
DX: I63.81 Other cerebral infarction due to occlusion or stenosis of small artery (principal); I69.354 Hemiplegia and hemiparesis following cerebral infarction affecting left non-dominant side; I25.10 Atherosclerotic heart disease of native coronary artery without angina pectoris; I65.23 Occlusion and stenosis of bilateral carotid arteries; J01.00 Acute maxillary sinusitis, unspecified; I08.3 Combined rheumatic disorders of mitral, aortic and tricuspid valves; R00.1 Bradycardia, unspecified; G31.89 Other specified degenerative diseases of nervous system; F17.210 Nicotine dependence, cigarettes, uncomplicated; I10 Essential (primary) hypertension; R53.1 Weakness; E78.1 Pure hyperglyceridemia; E78.5 Hyperlipidemia, unspecified; F12.90 Cannabis use, unspecified, uncomplicated; J45.909 Unspecified asthma, uncomplicated; Z79.51 Long term (current) use of inhaled steroids; Z79.82 Long term (current) use of aspirin; Z79.899 Other long term (current) drug therapy; Z88.0 Allergy status to penicillin; Z91.010 Allergy to peanuts; Z91.018 Allergy to other foods
CPT/HCPCS: 36415; 70496; 70498; 71046; 80053; 80061; 83036; 84443; 84484; 85025; 85610; 85730; 88304; 88311; 93005; 93306; 93880; 94760; 95819; 96360; 99285

== ENCOUNTER 2024-06-07 10:50 | Emergency (ER) | payer BC ==
[2024-06-07 11:02] VITALS: BP 168/89; PULSE 77; RESP 18; TEMP 98.1
[2024-06-07] MEDS: KETOROLAC 15 MG/ML 1 ML VIAL IM STA (11:58)
--- NOTE | 2024-06-07 11:59 | ED ---
Headache HPI - General Chief Complaint: Headache Stated Complaint: Headache Time Seen by Provider: 06/07/24 11:40 Source: RN notes reviewed Mode of arrival: ambulatory Limitations: no limitations - History of Present Illness Initial Comments: 54-year-old male presenting for dental pain x 1 week with associated headache. Patient states he has had all of his upper teeth extracted except for 1. He has been having pain at the site of the tooth and has been taking 800 mg ibuprofen with little relief. Denies lightheadedness, fevers, chills, vomiting. Patient states he does have an allergy to penicillin but can take amoxicillin with no issues. - Related Data Home Medications Medication Instructions Recorded Confirmed Aspirin EC [Ecotrin Low Dose] 81 mg PO DAILY 01/18/16 06/26/22 ALPRAZolam [Xanax] 0.5 mg PO DAILY PRN 06/26/22 06/26/22 Buprenorphine HCl/Naloxone HCl 1 film SL DAILY PRN 06/26/22 06/26/22 [Buprenorphine-Nalox 8-2Mg Film] EPINEPHrine [Primatene Mist] 1 puff INHALATION RT-BID PRN 06/26/22 06/26/22 Ibuprofen [Motrin] 800 mg PO Q8H PRN 06/26/22 06/26/22 Metoprolol Tartrate [Lopressor] 50 mg PO BID 06/26/22 06/30/22 Ondansetron Odt [Zofran ODT] 4 mg PO TID PRN 06/26/22 06/26/22 Venlafaxine HCl ER [Effexor XR] 75 mg PO DAILY 06/26/22 06/26/22 Previous Rx's Medication Instructions Recorded Atorvastatin [Lipitor] 80 mg PO HS #30 tab 06/30/22 Clopidogrel [Plavix] 75 mg PO DAILY #30 tab 06/30/22 Amoxic-Pot Clav 875-125Mg 1 tab PO Q12HR #20 tab 06/07/24 [Augmentin 875-125] Ketorolac [Toradol] 10 mg PO Q8HR #15 tab 06/07/24 Allergies Allergy/AdvReac Type Severity Reaction Status Date / Time peanut Allergy Anaphylaxis Verified 06/07/24 10:57 tree nut Allergy Anaphylaxis Verified 06/07/24 10:57 Penicillins AdvReac Nausea & Verified 06/07/24 10:57 Vomiting Review of Systems ROS Statement: Those systems with pertinent positive or pertinent negative responses have been documented in the HPI. ROS Other: All systems not noted in ROS Statement are negative. Past Medical History Past Medical History: Asthma, Coronary Artery Disease (CAD), CVA/TIA, Hypertension History of Any Multi-Drug Resistant Organisms: None Reported Past Surgical History: Orthopedic Surgery Additional Past Surgical History / Comment(s): mitral valve repair, left rotator cuff surgery 2004 Past Anesthesia/Blood Transfusion Reactions: No Reported Reaction Past Psychological History: No Psychological Hx Reported Smoking Status: Current every day smoker Past Alcohol Use History: None Reported Past Drug Use History: Marijuana - Past Family History Father Family Medical History: Cancer, Coronary Artery Disease (CAD), Hypertension Mother Family Medical History: Cancer General Exam Limitations: no limitations General appearance: alert, in no apparent distress Head exam: Present: atraumatic, normocephalic, normal inspection Eye exam: Present: normal appearance, PERRL, EOMI. Absent: scleral icterus, conjunctival injection, periorbital swelling ENT exam: Present: mucous membranes moist, other (All upper teeth extracted except for canine left upper side. No fluctuant mass, no erythema or drainage.) Neck exam: Present: normal inspection. Absent: tenderness, meningismus, lymphadenopathy Respiratory exam: Present: normal lung sounds bilaterally. Absent: respiratory distress, wheezes, rales, rhonchi, stridor Cardiovascular Exam: Present: regular rate, normal rhythm, normal heart sounds. Absent: systolic murmur, diastolic murmur, rubs, gallop, clicks Neurological exam: Present: alert, oriented X3 Psychiatric exam: Present: normal affect, normal mood Skin exam: Present: warm, dry, intact, normal color. Absent: rash Course Vital Signs 06/07/24 10:57 Temperature 98.1 F Pulse Rate 77 Respiratory 18 Rate Blood Pressure 168/89 O2 Sat by Pulse 99 Oximetry Medical Decision Making - Medical Decision Making Was pt. sent in by a medical professional or institution (, PA, NETWORK SYSTEMS ANALYST, urgent care, hospital, or long term...) When possible be specific @ -No Did you speak to anyone other than the patient for history (EMS, parent, family, police, friend...)? What history was obtained from this source @ -No Did you review nursing and triage notes (agree or disagree)? Why? @ -I reviewed and agree with nursing and triage notes Were old charts reviewed (outside hosp., previous admission, EMS record, old EKG, old radiological studies, urgent care reports/EKG's, long term records)? Report findings @ -No old charts were reviewed Differential Diagnosis (chest pain, altered mental status, abdominal pain women, abdominal pain men, vaginal bleeding, weakness, fever, dyspnea, syncope, headache, dizziness, GI bleed, back pain, seizure, CVA, palpatations, mental health, musculoskeletal)? @ -Dental infection, gingivitis, Jean Paul's angina, dental abscess EKG interpreted by me (3pts min.). @ -None X-rays interpreted by me (1pt min.). @ -None done CT interpreted by me (1pt min.). @ -None done U/S interpreted by me (1pt. min.). @ -None done What testing was considered but not performed or refused? (CT, X-rays, U/S, labs)? Why? @ -None What meds were considered but not given or refused? Why? @ -None Did you discuss the management of the patient with other professionals (professionals i.e. , PA, NETWORK SYSTEMS ANALYST, lab, RT, psych nurse, rn social work, perch machine inspector, teacher, corporate officer, mental health case manager)? Give summary @ -No Was smoking cessation discussed for >3mins.? @ -No Was critical care preformed (if so, how long)? @ -No Were there social determinants of health that impacted care today? How? (Homelessness, low income, unemployed, alcoholism, drug addiction, transportation, low edu. Level, literacy, decrease access to med. care, halfway, rehab)? @ -No Was there de-escalation of care discussed even if they declined (Discuss DNR or withdrawal of care, Hospice)? DNR status @ -No What co-morbidities impacted this encounter? (DM, HTN, Smoking, COPD, CAD, Cancer, CVA, ARF, Chemo, Hep., AIDS, mental health diagnosis, sleep apnea, morbid obesity)? @ -None Was patient admitted / discharged? Hospital course, mention meds given and route, prescriptions, significant lab abnormalities, going to OR and other pertinent info. @ -Discharged. This is a 54-year-old male presenting to the ER with chief comp laint of dental pain x 1 week. No red flag symptoms. No fluctuant mass or signs of abscess. Patient was provided with IM Toradol for symptom control. I will prescribe Augmentin and Toradol. Advised close follow-up with dentist for dental infection. Supportive care as well as return precautions discussed and patient shows understanding and is agreeable to plan. Case was discussed with my ED attending Dr. Sommer. Patient stable at time of discharge. Undiagnosed new problem with uncertain prognosis? @ -No Drug Therapy requiring intensive monitoring for toxicity (Heparin, Nitro, Insulin, Cardizem)? @ -No Were any procedures done? @ -No Diagnosis/symptom? @ -Dental infection Acute, or Chronic, or Acute on Chronic? @ -Acute Uncomplicated (without systemic symptoms) or Complicated (systemic symptoms)? @ -Uncomplicated Side effects of treatment? @ -No Exacerbation, Progression, or Severe Exacerbation? @ -No Poses a threat to life or bodily function? How? (Chest pain, [place], [place], pneumonia, PE, COPD, DKA, ARF, appy, cholecystitis, CVA, Diverticulitis, Homicidal, Suicidal, threat to staff... and all critical care pts) @ -No Disposition Clinical Impression: Dental infection Disposition: HOME SELF-CARE Condition: Stable Instructions (If sedation given, give patient instructions): Toothache (ED) Additional Instructions: Take Augmentin as prescribed. Take Toradol for pain as needed. Follow-up with dentist as discussed. Please return to the Emergency Department if symptoms worsen or any other concerns. Prescriptions: Amoxic-Pot Clav 875-125Mg [Augmentin 875-125] 1 tab PO Q12HR #20 tab Ketorolac [Toradol] 10 mg PO Q8HR #15 tab Is patient prescribed a controlled substance at d/c from ED?: No Referrals: Leonid Snider DO [Primary Care Provider] - 1-2 days Time of Disposition: 11:59
== END 2024-06-07 12:14 | disposition home or self-care (01) ==
LOC: EC 10:50
CPT/HCPCS: 96372; 99283